=== PATIENT | male | born 2000 | race Caucasian/White ===

== ENCOUNTER 2024-05-22 09:22 | Emergency (ER) | payer OTHER, SELFPAY ==
[2024-05-22 09:25] VITALS: BP 143/98
[2024-05-22 10:00] VITALS: BP 132/75
--- NOTE | 2024-05-22 10:17 | ED.GENMED ---
History of Present Illness
General
Chief Complaint: Dizziness
Source: patient
Exam Limitations: none
Time Seen by Provider: 05/22/24 10:03
History of Present Illness
History of Present Illness:
24-year-old male on Wellbutrin and Lamictal clonidine presents with 2 days worth of feeling dizzy with blurry vision and numbness to both feet. He notes fatigue and myalgias as well. No fever cough or shortness of breath. No chest pain abdominal
pain or vomiting. He states he has been running out of his Lamictal and he has been taking it sparingly but has been taking at least once a day he is on 50 mg twice a day usually. 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 He denies any rash or tick
bites. No other complaints at this time
Phy Exam
Physical Exam
Physical Exam:
General: Well-appearing male no acute respiratory distress
HEENT: Normocephalic atraumatic pupils equal round reactive to light extract motions are intact
Heart: Regular rate and rhythm
Lungs: Clear no wheeze or rales
Abdomen is soft nontender nondistended
Neurologic exam: Alert and oriented normal gait conversing appropriately finger-nose intact no nystagmus
Skin is warm no rash or lesion
Course
Orders/Labs/Results
Orders:
Orders
05/22/24 10:14
CT Head W/o Iv Contrast Urgent
Comment:
Reason For Exam: dizzy
05/22/24 10:19
COVID-19 Antigen Urgent
Source: Nasal Swab
CPK [Creatine Phosphokinase] Urgent
Complete Blood Count/With Diff Urgent
Comprehensive Metabolic Panel Urgent
Lamotrigine (Lamictal) [S] Urgent
Lyme Progressive Urgent
TSH Reflex To Free T4 Urgent
05/22/24 11:46
Orthostatic VS- Treatment ONCE
0.9% Sodium Chloride 1000 ml [Nss] 1,000 ml IV BOLUS
Abnormal Lab Results
05/22/24
10:19
RBC 4.45 L 10^6/uL
(4.70-6.10)
MCH 32.8 H pg
(27.0-31.0)
Abs Immat Gran (auto) 0.1 H 10^3/uL
(0-0.05)
Absolute Monos (auto) 0.7 H 10^3/uL
(0.1-0.6)
Immature Gran % 0.7 H %
(0-0.5)
Carbon Dioxide 33 H mmol/L
(22-30)
AST 87 H U/L
(17-59)
Creatine Kinase 1005 H U/L
(55-170)
05/22/24 10:19
05/22/24 10:19
Vital Signs
Initial and Last Documented VS:
Initial Vital Signs
Temp Pulse Resp BP Pulse Ox
98.6 F 78 18 143/98 98
05/22/24 09:25 05/22/24 09:25 05/22/24 09:25 05/22/24 09:25 05/22/24 09:25
Last Documented Vital Signs
Temp Pulse Resp BP Pulse Ox
98.6 F 78 18 143/98 98
05/22/24 09:25 05/22/24 09:25 05/22/24 09:25 05/22/24 09:25 05/22/24 09:25
MDM/Problems Addressed
Differential Diagnosis Includes:
Generalized sensation of not feeling well but accompanied by blurry vision is dizziness and numbness in feet. Differential could include viral illness versus Lyme versus neurologic disorder versus dehydration or electrolyte abnormality
Patient has not been here before he has minimal health problems that would affect today's care however he has been not taking his Lamictal as he normally would.
Labs pending including thyroid Lyme limit the level. Will do CT of head.
*Critical Care Note
Total Time (30-74mins, 75-104mins- exclusive of procedures): Not Applicable
Update Note
Update Note:
Patient reevaluated multiple times still appears nontoxic. CT head negative COVID-negative. Lyme pending Lamictal level pending. CPK was elevated at 1005. Patient was given a liter fluid here advised that he follow-up in a week for recheck of
his blood. He was also advised that he would get a call if his Lyme test was positive.
Dizziness may be a product of dehydration. Do not suspect CVA.
ED Attending Note
-
Portions of this chart may have been created with voice recognition software.� Occasional wrong word or��sound alike� substitutions may have occurred due to the inherent limitations of voice recognition software.
Discharge Plan
Departure
Patient Disposition: Home (Routine Discharge)
Date of Disposition: 05/22/24
Time of Disposition: 12:25
Patient with high blood pressure during this ER visit?: No
Discharge Problem:
Fatigue
Instructions: Dizziness
Referrals:
Diamante Vickers MD [Family Provider] -
Stand Alone Forms: Return to Work
Activity Restrictions/Additional Instructions:
Stay hydrated. You should receive a call if your Lyme test is positive. Please recheck with your family doctor in 1 week for repeat Vahe blood work including the CPK. Return here for worsening symptoms otherwise
Interventions
Interventions:
*Risk Screen - Suicide Last Done: 05/22/24 09:25
*General Assessment Last Done: 05/22/24 09:25
*Neglect/Abuse Screening Last Done: 05/22/24 09:25
Discharge Date and Time
Print Language: GREENLANDIC
[2024-05-22 10:44] LABS: % Basophils 0.8 % (0-2); % Eosinophils 1.7 % (0-6); % Immature Granulocytes 0.7 % (0-0.5); % Lymphocytes 20.8 % (20.5-51.1); % Monocytes 7.3 % (1.7-9.3); % Neutrophils 68.7 % (42.2-75.2); Absolute Basophils 0.1 10^3/uL (0-0.2); Absolute Eosinophils 0.2 10^3/uL (0-0.7); Absolute Immature Granulocytes 0.1 10^3/uL (0-0.05); Absolute Lymphocytes 1.9 10^3/uL (1.2-3.4); Absolute Monocytes 0.7 10^3/uL (0.1-0.6); Absolute Neutrophils 6.3 10^3/uL (1.4-6.5); Hemoglobin 14.6 g/dL (13.0-18.0); Mean Corp Hgb Conc. 35.6 g/dL (33.0-37.0); Mean Corpuscular Hgb 32.8 pg (27.0-31.0); Mean Corpuscular Volume 92.1 fL (80.0-94.0); Mean Platelet Volume 9.9 fL (7.4-10.4); Nucleated Red Blood Cells % 0 % (-); Platelet Count 274 10^3/uL (130-400); Red Blood Cell Count 4.45 10^6/uL (4.70-6.10); Red Cell Dist. Width 12.5 % (11.5-14.5); White Blood Cell Count 9.1 10^3/uL (4.8-10.8)
[2024-05-22 10:51] LABS: COVID-19 Antigen Negative (Negative)
[2024-05-22 10:53] LABS: ALT (SGPT) 34 U/L (0-50); AST (SGOT) 87 U/L (17-59); Albumin 4.1 g/dl (3.5-5.0); Alkaline Phosphatase 94 U/L (38-126); Blood Urea Nitrogen 14 mg/dl (9-20); Calcium 9.3 mg/dl (8.4-10.2); Carbon Dioxide 33 mmol/L (22-30); Chloride 99 mmol/L (98-107); Creatine Phosphokinase 1005 U/L (55-170); Glucose 89 mg/dl (70-99); Potassium 4.8 mmol/L (3.5-5.1); Sodium 136 mmol/L (135-145); Total Bilirubin 0.4 mg/dl (0.2-1.3); Total Protein 6.6 g/dl (6.3-8.2); eGFR > 60.00
[2024-05-22 11:29] LABS: TSH Reflex To Free T4 3.49 uIU/ml (0.47-4.68)
[2024-05-22 11:46] VITALS: BP 136/89; BP 136/97; BP 136/98; PULSE 78; PULSE 85; PULSE 89
[2024-05-22] MEDS: NSS 1000 IV (12:00)
[2024-05-22 13:15] VITALS: BP 140/79
[2024-05-23 19:57] LABS: Lamotrigine (Lamictal) <0.9 ug/mL (3.0-15.0)
[2024-05-24 14:21] LABS: Lyme Antibody Screen, EIA Negative (Negative)
== END 2024-05-22 13:15 | disposition home or self-care (01) ==
LOC: EMR 09:22
PROVIDERS: Physician Assistant; EMERGENCY PHYSICIAN Emergency Medicine; FAMILY PHYSICIAN Internal Medicine
DX: R42 Dizziness and giddiness (principal)
CPT/HCPCS: 99284; 96360; 70450; 80053; 80175; 82550; 84443; 85025; 86618; 87811

== ENCOUNTER 2024-06-03 08:07 | Emergency (ER) | payer OTHER, SELFPAY ==
[2024-06-03 08:17] VITALS: BP 128/76
--- NOTE | 2024-06-03 09:22 | ED.GENMED ---
History of Present Illness
General
Chief Complaint: Musculo-Skeletal Complaint
Time Seen by Provider: 06/03/24 09:09
History of Present Illness
History of Present Illness:
Days. States he was reaching across his body to bean picker the phone when he felt sudden onset of pain in the right infra axillary chest wall. Denies any direct trauma. Pain is pleuritic and nonradiating. [facility]
where x-rays were obtained and were reportedly unremarkable, he was prescribed cyclobenzaprine and has not had any relief despite taking this coupled with Tylenol and ibuprofen. Presents here with worsening pain. Denies nausea or vomiting
Review of Systems
Review of Systems
Allergies reviewed?: Yes
All Other Systems: ROS reviewed and negative except as documented in HPI and ROS
Phy Exam
Physical Exam
Physical Exam:
GEN: Well appearing, NAD, WDWN
HEENT: Oral mucosa moist, no scleral icterus
Cardiac: Regular rate
Lung: No respiratory distress, no tachypnea, lungs clear to auscultation bilaterally although poor inspiratory effort secondary to pain
Chest: Reproducible tenderness to the right infra axillary chest wall, no palpable deformities or ecchymosis
MSK: No gross deformity or injuries
Skin: Good color, no pallor or jaundice, no rashes
Neuro: AO x3, moves all extremities freely
Psych: Calm, cooperative
Course
Orders/Labs/Results
Orders:
Orders
06/03/24 09:19
Diazepam [Valium] 5 mg PO NOW STA
Ketorolac [Toradol] 30 mg IM NOW STA
Lidocaine [Lidocaine 4% Patch] 1 patch TOPICAL NOW STA
Apply Lidocaine patch(s) to:: R chest wall
06/03/24 10:38
CR Chest - 2 Views Urgent
Comment:
Reason For Exam: non traumatic R chest pain
Vital Signs
Initial and Last Documented VS:
Initial Vital Signs
Temp Pulse Resp BP Pulse Ox
99.0 F 103 16 128/76 98
06/03/24 08:17 06/03/24 08:17 06/03/24 08:17 06/03/24 08:17 06/03/24 08:17
Last Documented Vital Signs
Temp Pulse Resp BP Pulse Ox
99.0 F 103 16 128/76 98
06/03/24 08:17 06/03/24 08:17 06/03/24 09:50 06/03/24 08:17 06/03/24 08:17
MDM/Problems Addressed
MDM/Problems Addressed:
X-ray shows no evidence for pneumothorax. Patient's pain was treated supportively with improvement. Likely chest wall strain. Discussed supportive care and return parameters
*Critical Care Note
Total Time (30-74mins, 75-104mins- exclusive of procedures): Not Applicable
ED Attending Note
-
Portions of this chart may have been created with voice recognition software.� Occasional wrong word or��sound alike� substitutions may have occurred due to the inherent limitations of voice recognition software.
Discharge Plan
Departure
Patient Disposition: Home (Routine Discharge)
Date of Disposition: 06/03/24
Time of Disposition: 11:10
Patient with high blood pressure during this ER visit?: No
Discharge Problem:
Chest wall muscle strain
Instructions: Bruised Rib (DC)
Prescriptions:
New
diazepam 5 mg tablet
5 mg PO TID PRN (Reason: muscle spasm) Qty: 15 0RF
diclofenac sodium 75 mg tablet,delayed release (DR/EC)
75 mg PO BID Qty: 20 0RF
Referrals:
Diamante Vickers MD [Family Provider] -
Stand Alone Forms: Return to Work
Activity Restrictions/Additional Instructions:
Discontinue the cyclobenzaprine
Use the diazepam and diclofenac as prescribed
Take Tylenol but do not take ibuprofen/Motrin/Advil with the prescriptions I provided
Use lidocaine patches [id number] once per day
Interventions
Interventions:
*Risk Screen - Suicide Last Done: 06/03/24 10:58
*General Assessment Last Done: 06/03/24 10:58
*Neglect/Abuse Screening Last Done: 06/03/24 10:58
ED- Fall Risk Assessment Last Done: 06/03/24 11:27
*ED COVID-19 Vaccine History Last Done: 06/03/24 10:58
*Nursing Disposition Last Done: 06/03/24 11:27
ED-Musculoskeletal Assessment Last Done: 06/03/24 09:48
Discharge Date and Time
Discharge Date/Time: 06/03/24 11:28
Print Language: ICELANDIC
[2024-06-03] MEDS: LIDOCAINE 4% PATCH 1 PATCH TOPICAL (09:51)
[2024-06-03] MEDS: TORADOL 30 MG IM (09:51)
[2024-06-03] MEDS: VALIUM 5 MG PO (09:52)
== END 2024-06-03 11:28 | disposition home or self-care (01) ==
LOC: EMR 08:07
PROVIDERS: EMERGENCY PHYSICIAN Emergency Medicine; FAMILY PHYSICIAN Internal Medicine
DX: S29.011A Strain of muscle and tendon of front wall of thorax, initial encounter (principal); J18.9 Pneumonia, unspecified organism; X58.XXXA Exposure to other specified factors, initial encounter
CPT/HCPCS: 99283; 96372; 71046

== ENCOUNTER 2024-06-06 16:19 | Inpatient (IN) | payer OTHER, SELFPAY ==
[2024-06-06] VITALS (7 sets, daily range): BP systolic 115–132; BP diastolic 68–80; BMI 21.1; BMI 26.9
--- NOTE | 2024-06-06 13:13 | ED.GENMED ---
History of Present Illness
General
Chief Complaint: Breathing Problem
Time Seen by Provider: 06/06/24 12:51
History of Present Illness
History of Present Illness:
Patient presents to the emergency department with right-sided chest pain cough and fevers. Symptoms started last with right-sided chest pain. States started after he turned a certain way and felt a pop in his right axillary region. He
was seen at an outpatient urgent care had an x-ray that was negative. He returned to care and was seen in the emergency department and diagnosed with musculoskeletal pain he was given muscle relaxants and pain patches. He then went to another
urgent care due to cough and fever and was found to have pneumonia. He was given 1 dose of IV ceftriaxone yesterday and started on doxycycline and received 2 doses yesterday and 1 dose today. Reports worsening symptoms, fatigue, dark urine and
fevers
Phy Exam
Physical Exam
Physical Exam:
GENERAL APPEARANCE: NAD, well developed/ well nourished, uncomfortable appearing, feels hot
EYES lids/conjunctiva normal
EARS/NOSE/THROAT Mucous membranes moist, uvula midline without oral pharyngeal erythema, exudate or swelling
HEAD/NECK normocephalic atraumatic, neck is supple.
RESPIRATORY respiratory effort normal, speaks in full sentences, no accessory muscle use. Diminished breath sounds at right base
CARDIAC Regular rate and rhythm, no edema.
ABDOMINAL Soft, ND/NT. No pulsatile masses on exam, rebound tenderness, Mcnally sign or pain over Mcburney's point.
MUSCLES/EXTREMITIES No abnormal range of motion, no swelling.
SKIN Hot, pink and dry. No rashes
NEUROLOGICAL Speech is clear and appropriate. Normal level of consciousness. 5/5 strength in all extremities.
PSYCH Normal mood and affect. Judgement/competence is appropriate
Course
Orders/Labs/Results
Orders:
Orders
06/06/24 12:23
Electrocardiogram (*1) Urgent
Reason for Study: Chest Pain
EKG- Treatment ONCE
06/06/24 13:11
Electrocardiogram (*1) Stat
Reason for Study: Other
Other Reason for Exam: pneumonia
0.9% Sodium Chloride 1000 ml [Nss] 1,000 ml IV BOLUS
Acetaminophen [Tylenol] 1,000 mg PO NOW STA
CefTRIAXone [Rocephin] 1,000 mg IV NOW STA
06/06/24 13:12
CR Chest - 2 Views Urgent
Comment:
Reason For Exam: pneumonia
06/06/24 13:13
Urinalysis Reflex To Culture Urgent
06/06/24 13:31
CPK [Creatine Phosphokinase] Urgent
Complete Blood Count/With Diff Urgent
Comprehensive Metabolic Panel Urgent
Direct Bilirubin Urgent
Comment: DIRECT BILIRUBIIN ADDED ON BY FLOOR 3PM 06-06-24
Lactic Acid Q4H
Comment: CANCEL 2nd LACTIC ACID IF 1st LACTIC ACID IS LESS THAN 2
Blood Culture Urgent
ABEL Source: Blood/Venous
Specimen Description:
06/06/24 13:34
Sterile Water [Sterile Water For Injection] 20 ml .ROUTE .STK-MED
06/06/24 14:00
Benzonatate [Tessalon Perles] 200 mg PO ONCE ONE
06/06/24 14:49
CT Chest With Iv Contrast Urgent
Comment:
Reason For Exam: possible pulmonic abscess
MetroNIDAZOLE 500 MG/100 ML [Flagyl 500 mg] 100 ml IV NOW
06/06/24 14:53
0.9% Sodium Chloride 1000 ml [Nss] 1,000 ml IV BOLUS
06/06/24 15:03
Add On- LAB Routine
Tests Added?: direct bilirubin
06/06/24 15:29
Admit/Transfer Patient As Directed
Co-Sign Provider:
Level of Care: Inpatient admission
Assign to:: Medical/Surgical
Physician / Group: [facility]
Diagnosis: Cavitary pneumonia, sepsis
Reason for Hospitalization: IV antibiotics, IVF, pulmonary consult
Expected length of stay greater than two midnights?: Yes
ELOS- Estimated Length of Stay in days: 4
I certify the patient meets the requirements for IP care: Yes
PRN Pain Medication Management As Directed
May give lesser potent ordered pain med per pt: Yes
preference::
Protocol:: Medication orders for pain may be administered in a
manner that supports deferring to patient preference
when the pt is:
- Requesting an ordered lesser potent pain medication.
Least to most potent pain medications are defined
as: acetaminophen < NSAID < tramadol < opioids
(morphine, oxycodone, hydromorphone).
- Requesting a lesser dose of the same medication IF
ORDERED.
- Requesting a less intrusive route of administration
if both routes are prescribed by the provider (PO <
IV).
06/06/24 15:31
Code Status As Directed
Resuscitation Status: Full Code
Abnormal Lab Results
06/06/24
13:31
WBC 19.8 H 10^3/uL
(4.8-10.8)
RBC 4.20 L 10^6/uL
(4.70-6.10)
Hct 37.5 L %
(39.0-52.0)
MCH 31.4 H pg
(27.0-31.0)
Plt Count 403 H 10^3/uL
(130-400)
Abs Immat Gran (auto) 0.2 H 10^3/uL
(0-0.05)
Absolute Neuts (auto) 17.2 H 10^3/uL
(1.4-6.5)
Absolute Monos (auto) 1.2 H 10^3/uL
(0.1-0.6)
Immature Gran % 1.0 H %
(0-0.5)
Neutrophils % 86.9 H %
(42.2-75.2)
Lymphocytes % 5.8 L %
(20.5-51.1)
Sodium 133 L mmol/L
(135-145)
Glucose 106 H mg/dl
(70-99)
Total Bilirubin 2.0 H mg/dl
(0.2-1.3)
Direct Bilirubin 1.5 H mg/dl
(0.0-0.4)
Alkaline Phosphatase 244 H U/L
(38-126)
Creatine Kinase 34 L U/L
(55-170)
Total Protein 6.0 L g/dl
(6.3-8.2)
Albumin 3.1 L g/dl
(3.5-5.0)
06/06/24 13:31
06/06/24 13:31
Vital Signs
Initial and Last Documented VS:
Initial Vital Signs
Temp Pulse Resp BP Pulse Ox
102.9 F H 127 18 125/73 96
06/06/24 12:19 06/06/24 12:19 06/06/24 12:19 06/06/24 12:19 06/06/24 12:19
Last Documented Vital Signs
Temp Pulse Resp BP Pulse Ox
100.4 F H 112 39 123/76 94
06/06/24 14:48 06/06/24 15:00 06/06/24 15:00 06/06/24 15:00 06/06/24 15:00
*Critical Care Note
Total Time (30-74mins, 75-104mins- exclusive of procedures): Not Applicable
ED Attending Note
ED Attending Note
ED Attending Note:
worsening symptoms, night sweats, cough, fevers to 103.
febrile here, tachycardic to 120s. BP is stable.
no respiratory distress or O2 requirements
WBC 19.8, normal lactate
CXR with dense RLL infiltrate with possible pulmonic abscess
Given CTX, doxycycline, metronidazole
ordered CT chest with contrast
will admit for further management
-
Portions of this chart may have been created with voice recognition software.� Occasional wrong word or��sound alike� substitutions may have occurred due to the inherent limitations of voice recognition software.
Discharge Plan
Departure
Patient Disposition: Admit
Date of Disposition: 06/06/24
Time of Disposition: 14:57
Presentation/result/management discussed w/ accepting MD/DO: Hospitalist
Discharge Problem:
Community acquired pneumonia
Prescriptions:
No Action
diclofenac sodium 75 mg tablet,delayed release (DR/EC)
75 mg PO BID Qty: 20 0RF
doxycycline hyclate 100 mg Capsule
100 mg PO BID
clonidine HCl 0.3 mg Tablet
0.3 mg PO HS
acetaminophen [Tylenol Extra Strength] 500 mg Tablet
1,000 mg PO Q6HPRN PRN (Reason: mild pain)
bupropion HCl 100 mg Tablet Sustained-Release 12 Hr
100 mg PO BID
lamotrigine 25 mg Tablet
50 mg PO BID
fluoxetine 20 mg Capsule
80 mg PO DAILY
diazepam 5 mg tablet
5 mg PO TIDPRN PRN (Reason: muscle spasm)
Referrals:
Nicola Wade CRNP [Family Provider] -
Interventions
Interventions:
*Risk Screen - Suicide Last Done: 06/06/24 12:19
*General Assessment Last Done: 06/06/24 12:19
*Neglect/Abuse Screening Last Done: 06/06/24 12:19
ED- Fall Risk Assessment Last Done: 06/06/24 13:45
ED- Cardiac Assessment Last Done: 06/06/24 13:45
ED- Pulmonary Assessment Last Done: 06/06/24 13:45
Discharge Date and Time
Print Language: KHMER
[2024-06-06] MEDS: NSS 1000 IV ×3 (13:36→18:12)
[2024-06-06] MEDS: ROCEPHIN 1000 MG IV (13:37)
[2024-06-06] MEDS: TYLENOL 1000 MG PO (13:37)
[2024-06-06 13:54] LABS: Lactic Acid 1.3 mmol/L (0.7-2.0)
[2024-06-06 13:59] LABS: % Basophils 0.3 % (0-2); % Eosinophils 0.1 % (0-6); % Lymphocytes 5.8 % (20.5-51.1); % Monocytes 5.9 % (1.7-9.3); % Neutrophils 86.9 % (42.2-75.2); Absolute Basophils 0.1 10^3/uL (0-0.2); Absolute Immature Granulocytes 0.2 10^3/uL (0-0.05); Absolute Lymphocytes 1.2 10^3/uL (1.2-3.4); Absolute Monocytes 1.2 10^3/uL (0.1-0.6); Absolute Neutrophils 17.2 10^3/uL (1.4-6.5); Hematocrit 37.5 % (39.0-52.0); Hemoglobin 13.2 g/dL (13.0-18.0); Mean Corp Hgb Conc. 35.2 g/dL (33.0-37.0); Mean Corpuscular Hgb 31.4 pg (27.0-31.0); Mean Corpuscular Volume 89.3 fL (80.0-94.0); Mean Platelet Volume 9.9 fL (7.4-10.4); Nucleated Red Blood Cells % 0 % (-); Platelet Count 403 10^3/uL (130-400); White Blood Cell Count 19.8 10^3/uL (4.8-10.8)
[2024-06-06 14:07] LABS: ALT (SGPT) 49 U/L (0-50); AST (SGOT) 45 U/L (17-59); Albumin 3.1 g/dl (3.5-5.0); Alkaline Phosphatase 244 U/L (38-126); Blood Urea Nitrogen 15 mg/dl (9-20); Carbon Dioxide 25 mmol/L (22-30); Chloride 100 mmol/L (98-107); Creatine Phosphokinase 34 U/L (55-170); Estimated Creatinine Clearance 124 ml/min; Glucose 106 mg/dl (70-99); Potassium 4.1 mmol/L (3.5-5.1); Sodium 133 mmol/L (135-145); eGFR > 60.00
[2024-06-06] MEDS: TESSALON PERLES 200 MG PO (14:43)
[2024-06-06] MEDS: FLAGYL 500 MG 100 IV (15:24)
--- NOTE | 2024-06-06 15:37 | HPS.HSE ---
Family Physician
-
Family Physician: ERIC Murphy
Chief Complaint
-
Fever, chills, cough
History of Present Illness
24-year-old male here complaining of right-sided pleuritic chest pain with associated cough, fever, chills.
Originally developed pain on May 31 of the right lateral chest wall. Denies any trauma. Went to urgent care on June 02 and prescribed muscle relaxants. Reportedly chest x-ray at the time was unremarkable. Subsequently came into the emergency
room on Tuesday, June 03 and discharged on diazepam and diclofenac.
Had ongoing symptoms of cough fever chills and anorexia and dark urine over the past few days. Went back to urgent care yesterday and started on antibiotics (ceftriaxone, doxycycline) for pneumonia.
Went to see his primary care doctor today and was referred to the emergency room.
Denies history of pneumonia.
Admits to drinking 3-4 alcoholic beverages daily, states he has not had any in the past 2 weeks. He does vape and does medical marijuana nightly.
Denies any sick contacts.
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
Medical History
Past Medical History
Past Medical History: Reports Other
Additional Past Medical History:
Depression
Anxiety disorder
Past Surgical History: Reports Other
Additional Past Surgical History:
Adenoidectomy
Bilateral myringotomy tubes
Social History
Tobacco: Smoker
Alcohol: Daily
Drug: Marijuana
Personal: Single
Family History
Family History: Not pertinent
Allergies / Home Medications
Allergies reflects when Allergies were last updated in [facility].
Home Medications with original date entered in [facility]
Allergy/Medication List:
Allergies
Allergy/AdvReac Type Severity Reaction Status Date / Time
No Known Allergies Allergy Verified 06/03/24 08:19
Home Medications
diclofenac sodium 75 mg tablet,delayed release 75 mg PO BID #20 tabs 06/03/24
acetaminophen 500 mg tablet (Tylenol Extra Strength) 1,000 mg PO Q6HPRN PRN mild pain 06/06/24
bupropion HCl 100 mg tablet,12 hr sustained-release 100 mg PO BID 06/06/24
clonidine HCl 0.3 mg tablet 0.3 mg PO HS 06/06/24
diazepam 5 mg tablet 5 mg PO TIDPRN PRN muscle spasm 06/06/24
doxycycline hyclate 100 mg capsule 100 mg PO BID 06/06/24
fluoxetine 20 mg capsule 80 mg PO DAILY 06/06/24
lamotrigine 25 mg tablet 50 mg PO BID 06/06/24
Review of Systems
-
History Source: Patient and Family
A 12 point ROS was completed and negative except as noted: Yes
Constitutional: Reports Fever and Chills
Respiratory: Reports Cough
Cardiac: Reports Chest Pain
Physical Exam
Vital Signs
Vital Signs
Temp Pulse Resp BP Pulse Ox
100.4 F H 112 39 123/76 94
06/06/24 14:48 06/06/24 15:00 06/06/24 15:00 06/06/24 15:00 06/06/24 15:00
Physical Exam
General: Well Developed, Well Nourished, Appears in Distress and Pain
HEENT: NormoCephalic, Anicteric and Moist mucous membranes
Respiratory: Decreased Breath Sounds
Cardiac: S1/S2, Regular Rhythm and Tachycardia
GI: Soft, Non Tender and Non Distended
Genito-urinary: Deferred by me
Musculoskeletal: No Clubbing, No Cyanosis and No Edema
Skin: Warm and Dry
Neuro: AO x 3
Hematologic/Lymphatic: No Lymphadenopathy
Psych: Calm
Laboratory Results
-
06/06/24 13:31
06/06/24 13:31
Laboratory Results
Lactic Acid Cancelled 06/06/24 17:15
Total Bilirubin 2.0 mg/dl (0.2-1.3) H 06/06/24 13:31
AST 45 U/L (17-59) 06/06/24 13:31
ALT 49 U/L (0-50) 06/06/24 13:31
Alkaline Phosphatase 244 U/L (38-126) H 06/06/24 13:31
Impression/Plan
-
Sepsis due to right-sided cavitary pneumonia - admit to [facility]. Hemodynamically stable. IV Unasyn. Check blood and sputum cultures. Check urinary antigens. Acapella, incentive spirometry. Today's chest x-ray is concerning, showing worsening
of right lower lobe pneumonia with new area of central cavitation and lucency measuring 5.8 x 2.6 cm with possible air-fluid level suspicious for abscess.
Follow-up CT chest.
Consult pulmonary.
IV Toradol as needed pain.
Fourth-generation HIV assay, patient agreeable to testing.
Risk factors for pneumonia including vaping, alcohol use, possibly other unknown sources.
Hypovolemic hyponatremia -continue normal saline IV fluids. Sepsis and pneumonia induced anorexia causing hypovolemia.
Alcohol use disorder -abstinence strongly encouraged given presentation with pneumonia. Watch for withdrawal symptoms, although unlikely if he truly has been abstinent for 2 weeks.
Tobacco dependence -cessation advised.
Depression/anxiety disorder -resume home medications.
Full code
Mother updated at the bedside.
[2024-06-06 15:39] LABS: Direct Bilirubin 1.5 mg/dl (0.0-0.4)
[2024-06-06] MEDS: TORADOL 30 MG IV ×2 (15:55→21:59)
[2024-06-06 16:50] LABS: Urine Albumin Trace (Neg - Trace); Urine Bilirubin 1+ (Negative); Urine Character Clear (Clear); Urine Color Amber; Urine Glucose Negative (Negative); Urine Ketone Negative (Negative); Urine Leukocyte Negative (Negative); Urine Nitrite Negative (Negative); Urine Occult Blood Negative (Negative); Urine Urobilinogen 4+ (Neg - 1+)
--- NOTE | 2024-06-06 17:36 | PTCARENOTE ---
1725 Pt received from ED via stretcher AAOX4. Pt ambulated from stretcher to bed with steady gait. Pt accompanied by family and ED staff.
--- NOTE | 2024-06-06 17:40 | CON.PUL ---
Consultation
Consultation Request
Date/Time Consultation Requested: 06/06
Date/Time Consultation Performed: 06/06
Reason for Consultation: Cavitary pneumonia
Medical History
-
History of Present Illness:
History obtained from the patient and reviewing the chart. 24-year-old male whose history dates back to 05/31 when he developed right-sided chest discomfort after leaning over, he felt a pop. He went to urgent care on 06/02, was treated with muscle
relaxants. Because of persistent symptoms, he came to the ED 06/03, had chest x-ray and was told everything was okay. He was then called by the urgent care stating that his chest x-ray did show pneumonia, was asked to return to patient first. He
was given IV ceftriaxone and discharged on doxycycline. He then went to see his primary physician 06/06, found to be tachycardic and was told to go to the ED for further evaluation. Upon arrival to [facility], temperature 102.9, pulse 127,
breathing at 18, blood pressure 125/73, 96%. Chest x-ray showed progressive right lower lobe pneumonia. Patient was given ceftriaxone, doxycycline, metronidazole. CT chest obtained. Patient admitted for cavitary pneumonia. We are asked to
comment on pulmonary process.
Prior to 05/31, patient was in usual state of health. Denies any travel, sick contacts, nausea, abdominal pain, diarrhea. Admits to fevers and night sweats over the past few days. He is lost 5 pounds over the past 5 days.
He does get lightheaded and short of breath when has cough spasms. Denies hemoptysis. Can cough up about a cup of yellow mucus. This has been present for the past 5 days. Mother was present to corroborate
Patient does drink 4 [place] Light's a day which is his routine
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
Patient denies any sinus issues, dental issues, skin infections
.
PMH: History of anxiety, depression, opioid addiction per outpatient records. History of tonsillectomy, chronic ear infections requiring tubes as a child
Past Medical History
Past Medical History: None (See above)
Past Surgical History: None (See above)
Social History
Tobacco: Smoker (Intermittently between cigarettes and vaping)
Alcohol: Daily (4 [place] Light's a day. Admits to being buzzed every night)
Drug: None
Personal: Single
Living: With Family
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
Family History
Family History: Other (Younger brother with history of pneumonia, mother with history of pneumonia)
Allergies / Home Medications
Allergies
Allergy/AdvReac Type Severity Reaction Status Date / Time
No Known Allergies Allergy Verified 06/03/24 08:19
Home Medications
�Medication �Instructions �Recorded �Confirmed �Last Taken �Type
diclofenac sodium 75 mg 75 mg PO BID #20 tabs 06/03/24 06/06/24 06/05/24 Rx
tablet,delayed release
acetaminophen 500 mg tablet 1,000 mg PO Q6HPRN PRN mild pain 06/06/24 06/06/24 Unknown History
(Tylenol Extra Strength)
bupropion HCl 100 mg tablet,12 hr 100 mg PO BID 06/06/24 06/06/24 06/05/24 History
sustained-release
clonidine HCl 0.3 mg tablet 0.3 mg PO HS 06/06/24 06/06/24 06/05/24 History
diazepam 5 mg tablet 5 mg PO TIDPRN PRN muscle spasm 06/06/24 06/06/24 06/06/24 History
doxycycline hyclate 100 mg capsule 100 mg PO BID 06/06/24 06/06/24 06/06/24 History
fluoxetine 20 mg capsule 80 mg PO DAILY 06/06/24 06/06/24 06/05/24 History
lamotrigine 25 mg tablet 50 mg PO BID 06/06/24 06/06/24 06/05/24 History
Review of Systems
-
All other systems: Negative unless noted
Vitals / Labs / Diagnostic Testing
Vital Signs
Temp Pulse Resp BP Pulse Ox
98.5 F 95 18 130/77 98
06/06/24 17:39 06/06/24 17:39 06/06/24 17:39 06/06/24 17:39 06/06/24 17:39
Lab Data
06/06/24 13:31
06/06/24 13:31
Diagnostic Testing:
Physical Exam
-
HEENT: Normocephalic and Anicteric
Cardiovascular: S1/S2, Regular Rhythm, Murmur (n), Rub (n) and Peripheral Edema (n)
Respiratory: Wheeze (n), Rales (n), Rhonchi (n), Non-Labored Respirations and Other (Mild splinting, decreased breath sounds right side)
GI: Soft, Non Distended and Non Tender
Neurology: Awake, Alert and No Motor Deficits
Skin: Good Color and Other (Tattoo)
General: Comfortable
Assessment
-
24-year-old male with daily alcohol use, ongoing cigarette/vape presents with acute onset right-sided chest discomfort 05/31. Symptoms persisted along with productive cough, fevers, sweats, started on ceftriaxone/doxycycline 06/05, prompted to the ED
per primary because of tachycardia and progressive symptoms. Chest x-ray shows right lower lobe cavitary pneumonia
Cavitary right lower lobe pneumonia
Patchy right middle lobe infiltrate
Right hilar and mediastinal adenopathy
Acute right-sided chest discomfort, symptoms 05/31
Fevers/night sweats
Leukocytosis
Conditions present prior to admission
Daily alcohol use
Four [place] Lights/day
Ongoing tobacco/vaping
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
Plan/recommendations
At this time, the patient appears to be nontoxic, no evidence of tachycardia, no use of accessory muscles
Chest exam with decreased breath sounds, right base with mild splinting
Chest x-ray with progressive right lower lobe process over the last [address] chest confirms cavitary pneumonia
Difficult to differentiate as to whether there may be extra pleural fluid, empyema
Moving forward
Continue with broad-spectrum antibiotics. Unasyn is appropriate therapy at this time, appropriately dosed
Patient with daily alcohol use. Reviewed with patient that this may increase his risk for cavitary pneumonia
It is difficult to differentiate as to whether there may be fluid in the pleural space, which would require a thoracentesis/chest tube
Will review images at length with radiology in a.m.
Sputum culture
IV fluids
Discussed importance of tobacco and alcohol cessation
Differential also includes noninfectious process such as vasculitis, sequestration, septic emboli
EKG is normal , no other clinical sequela to suggest vasculitis. Patient was full-term baby, denies history of frequent pneumonias
Urine analysis negative for microscopic blood
Follow for response to antibiotic therapy
Bronchoscopy may be indicated but hopefully with IV antibiotics, patient will improve both objectively and subjectively, radiographically
DVT prophylaxis: Agree with Lovenox therapy
GI prophylaxis: Not indicated
Reviewed with patient and mother at bedside
All questions answered
[2024-06-06] MEDS: LOVENOX 40 MG SC (18:25)
[2024-06-06] MEDS: UNASYN IV (19:49)
[2024-06-06] MEDS: LAMICTAL 50 MG PO (19:49)
[2024-06-06] MEDS: WELLBUTRIN SR (12 hour sustained release) 100 MG PO (19:50)
[2024-06-06] MEDS: CATAPRES 0.3 MG PO (21:53)
[2024-06-07] VITALS (9 sets, daily range): BP systolic 94–137; BP diastolic 58–84
[2024-06-07] MEDS: UNASYN IV ×4 (01:32→20:31)
[2024-06-07] MEDS: TESSALON PERLES 100 MG PO ×3 (03:19→14:17)
[2024-06-07] MEDS: NSS 1000 IV (05:38)
[2024-06-07 07:11] LABS: % Basophils 0.3 % (0-2); % Eosinophils 0.5 % (0-6); % Immature Granulocytes 1.2 % (0-0.5); % Lymphocytes 9.5 % (20.5-51.1); % Neutrophils 81.5 % (42.2-75.2); Absolute Basophils 0.1 10^3/uL (0-0.2); Absolute Eosinophils 0.1 10^3/uL (0-0.7); Absolute Immature Granulocytes 0.2 10^3/uL (0-0.05); Absolute Lymphocytes 1.7 10^3/uL (1.2-3.4); Absolute Monocytes 1.2 10^3/uL (0.1-0.6); Absolute Neutrophils 14.4 10^3/uL (1.4-6.5); Hematocrit 36.7 % (39.0-52.0); Mean Corp Hgb Conc. 35.4 g/dL (33.0-37.0); Mean Corpuscular Hgb 32.2 pg (27.0-31.0); Mean Corpuscular Volume 90.8 fL (80.0-94.0); Nucleated Red Blood Cells % 0 % (-); Platelet Count 414 10^3/uL (130-400); Red Blood Cell Count 4.04 10^6/uL (4.70-6.10); Red Cell Dist. Width 12.9 % (11.5-14.5); White Blood Cell Count 17.6 10^3/uL (4.8-10.8)
[2024-06-07] MEDS: WELLBUTRIN SR (12 hour sustained release) 100 MG PO ×2 (07:52→20:32)
[2024-06-07] MEDS: LAMICTAL 50 MG PO ×2 (07:52→20:31)
[2024-06-07] MEDS: PROZAC 80 MG PO (07:53)
[2024-06-07] MEDS: TYLENOL 650 MG PO (07:54)
[2024-06-07 07:57] LABS: ALT (SGPT) 37 U/L (0-50); AST (SGOT) 33 U/L (17-59); Albumin 2.6 g/dl (3.5-5.0); Alkaline Phosphatase 237 U/L (38-126); Blood Urea Nitrogen 14 mg/dl (9-20); Calcium 8.5 mg/dl (8.4-10.2); Carbon Dioxide 19 mmol/L (22-30); Chloride 105 mmol/L (98-107); Estimated Creatinine Clearance > 125 ml/min; Glucose 91 mg/dl (70-99); Potassium 4.4 mmol/L (3.5-5.1); Sodium 134 mmol/L (135-145); Total Bilirubin 1.6 mg/dl (0.2-1.3); Total Protein 5.3 g/dl (6.3-8.2); eGFR > 60.00
--- NOTE | 2024-06-07 08:49 | W.PN.PUL3 ---
Today's Communication / Plan
-
Continue antibiotics
ID evaluation requested
Likely chest tube later today
Follow cultures
Assessment
-
24-year-old male with daily alcohol use, ongoing cigarette/vape presents with acute onset right-sided chest discomfort 05/31. Symptoms persisted along with productive cough, fevers, sweats, started on ceftriaxone/doxycycline 06/05, prompted to the ED
per primary because of tachycardia and progressive symptoms. Chest x-ray shows right lower lobe cavitary pneumonia
Cavitary right lower lobe pneumonia
Patchy right middle lobe infiltrate
Right hilar and mediastinal adenopathy
Suspected pleural fluid
Acute right-sided chest discomfort, symptoms 05/31
Fevers/night sweats
Leukocytosis
Conditions present prior to admission
Daily alcohol use
Four [place] Lights/day
Ongoing tobacco/vaping
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
Plan/recommendations
At this time, the patient appears stable, nontoxic. Mild tachycardia noted
Chest exam with decreased breath sounds, right base with mild splinting
Chest x-ray with progressive right lower lobe process over the last [address] chest confirms cavitary pneumonia
Difficult to differentiate as to whether there may be extra pleural fluid, empyema
Suspect there may be pleural fluid
Moving forward
Continue with broad-spectrum antibiotics. Unasyn is appropriate therapy at this time, appropriately dosed
Patient with daily alcohol use. Reviewed with patient that this may increase his risk for cavitary pneumonia
We will plan for diagnostic and possible chest tube placement later today. Lillian as needed will discuss with IR
ID has been consulted
Sputum culture
Legionella and streptococcal antigen negative
IV fluids
Discussed importance of tobacco and alcohol cessation
Differential also includes noninfectious process such as vasculitis, sequestration, septic emboli
EKG is normal , no other clinical sequela to suggest vasculitis. Patient was full-term baby, denies history of frequent pneumonias
Urine analysis negative for microscopic blood
Follow for response to antibiotic therapy
Bronchoscopy may be indicated but hopefully with IV antibiotics, patient will improve both objectively and subjectively, radiographically
DVT prophylaxis: Agree with Lovenox therapy
GI prophylaxis: Not indicated
Reviewed with patient and mother at bedside
Reviewed with interventional radiology, primary service
Subjective Data
-
Date of Service:
Date of Service: June 07, 2024
Subjective:
Patient is feeling slightly improved this morning but still with significant productive cough, yellow mucus, no blood. Enough to fill up. Just this morning. Still with mild right-sided back discomfort. Fevers noted. Denies nausea, abdominal
pain. Mother at bedside
Objective Data
Data Reviewed
Vital Signs / I&O / Oxygen:
Vital Signs
Temp Pulse Resp BP Pulse Ox
101.7 F H 103 16 137/83 94
06/07/24 07:49 06/07/24 07:49 06/07/24 07:49 06/07/24 07:49 06/07/24 07:49
Intake and Output
06/06/24 06/07/24 06/08/24
06:59 06:59 06:59
Intake Total 1919
Balance 1919
SaO2 94
Physical Exam
General: Comfortable
HEENT: Normocephalic and Anicteric
Cardiovascular: S1-S2, Regular Rhythm (Tachycardic), Murmur (n), Peripheral Edema (n) and Calf Tenderness (n)
Respiratory: Wheeze (n), Crackles (n), Rhonchi (n), Non-Labored Respirations and Other (Decreased breath sounds right base, dullness to percussion)
GI: Soft, Non Distended and Non Tender
Neurology: Awake, Alert and No Motor Deficits (Able to sit up without assistance)
Skin: Cyanosis (n), Jaundice (n), Rash (n) and Other (Tattoo)
Labs/Micro/Reports
Lab Data
06/07/24 06:46
06/07/24 06:46
Microbiology
06/06/24 16:36 Urine Legionella Urinary Antigen - Final
Negative for Legionella pneumophila Serogroup 1 antigen.
A negative result does not rule out the possiblity of
Legionella infection due to other serogroups or species of
Legionella. Clinical correlation is recommended.
06/06/24 16:36 Urine Streptococcus pneumoniae Antigen (M - Final
Negative for Streptococcus pneumoniae antigen.
A negative result does not exclude infection with
Streptococcus pneumoniae. Clinical correlation is
recommended.
[2024-06-07] MEDS: TORADOL 30 MG IV ×3 (08:58→22:04)
--- NOTE | 2024-06-07 10:26 | W.PN.HOSP.TC ---
Today's Communication/Plan
-
Antibiotics
IR consult
ID consult
Assessment / Plan
Assessment / Plan
Gen-AAOx3, NAD
HEENT-NC, AT, anicteric, clear oral mm
Neck-supple
CV-reg, no M, +S1/S2
Lungs-clear B/L
Abd-soft, NT, ND
Ext-no edema
Musculoskeletal-no cyanosis, clubbing
Skin-warm and dry
Neuro-grossly non-focal
Psych-calm, cooperative
Sepsis due to right-sided cavitary pneumonia/empyema -CT chest reviewed. Discussed with pulmonary. IR consult for possible chest tube placement. Continue IV Unasyn. Consult ID. Cultures pending.
HIV pending. IV Toradol as needed chest pain.
Hyponatremia -hypovolemic. Continue IV fluids.
Alcohol use disorder -abstinence strongly encouraged given presentation with pneumonia. Watch for withdrawal symptoms, although unlikely if he truly has been abstinent for 2 weeks.
Tobacco dependence -cessation advised.
Depression/anxiety disorder -continue home meds.
Full code
Anticipated Discharge: > 48 hours
Subjective/Interval History
-
Date of Service: June 07, 2024
Patient seen and examined. Still complaining of cough, right-sided pleuritic chest pain.
Objective Data
-
Labs:
Laboratory Results
06/07/24
06:46
WBC 17.6 H
Hgb 13.0
Hct 36.7 L
Plt Count 414 H
Sodium 134 L
Potassium 4.4
Chloride 105
Carbon Dioxide 19 L
BUN 14
Creatinine 0.8
Glucose 91
Calcium 8.5
Total Bilirubin 1.6 H
AST 33
ALT 37
Alkaline Phosphatase 237 H
Vital Signs:
Vital Signs
Temp Pulse Resp BP Pulse Ox
101.7 F H 103 16 137/83 94
06/07/24 07:49 06/07/24 07:49 06/07/24 07:49 06/07/24 07:49 06/07/24 07:49
I&O
06/06/24 06/07/24 06/08/24
06:59 06:59 06:59
Intake Total 1919
Balance 1919
Review of Systems
-
History Source: Patient
All other systems: Reviewed and negative
--- NOTE | 2024-06-07 13:44 | CON.ID ---
Consultation
-
Date/Time Consultation Requested: 06/06/2024 1734
Date/Time Consultation Performed: 06/07/2024 1320
Requesting Provider: Dr. Pettit
Performing Provider: Dr. Merrill
Reason for Consultation: Right lower lobe pneumonia
Chief Complaint / Past History
History of Present Illness
Eloy Lopez is a 24-year-old man being evaluated at the request of Dr. Pettit in regards to right lower lobe pneumonia. History is obtained from chart review, along with patient interview.
Patient has a significant past medical history for anxiety and depression and reports he initially felt ill around June 01 when he noted some right thoracic chest pain. On 06/02 he was seen at an urgent care for the thoracic chest pain and x-ray
imaging did not report any findings of pneumonia. He was sent on his way with a muscle relaxant, but presented to the ER on 06/03 secondary to the ongoing chest pain. At this point he noted that the chest discomfort was pleuritic in nature. The
patient reports no history of trauma to the area. Nothing was seen on x-ray imaging, and he was discharged to home. Following day he received a call from the urgent care where he was seen and official reports of the x-ray suggested pneumonia. He
was called back for a shot of Rocephin and was placed on doxycycline. He presents back to the ER on 06/06 secondary to increasing pain, and now imaging revealed the presence of a right lower lobe infiltrate. Further workup revealed a marked
leukocytosis, and a CAT scan that was performed revealed a very significant right lower lobe pneumonia with central cavitation and an air-fluid level. The patient has been started on empiric antibiotics; the first Rocephin/metronidazole, and now
has been switched to Unasyn. Infectious Diseases is asked to comment on further antimicrobial management. The patient is tentatively scheduled for aspiration of the air-fluid level via interventional radiology. Cultures are currently pending. At
this point in time the patient reports significant sputum production and coughing fits. He admits to prior fevers. He denies any abdominal pain.
He denies any episodes of aspiration. He denies any sick contacts.
Past History
Additional Past Medical History:
Anxiety/depression
Additional Past Surgical History:
Tonsil adenoids
Ear tubes
Allergy History:
No Known Allergies Allergy (Verified 06/03/24 08:19)
Medications Reviewed: Yes
Current Antibiotics:
Unasyn
Social History
Tobacco: Vaping
Alcohol: Daily (4-5 beers/day)
Drug: Marijuana (medical)
Personal: Single
Living: With Family
Employment: Employed ([employer])
Family History
Family History: Not Pertinent
Review of Systems
Vital Signs
Temp Pulse Resp BP Pulse Ox
101.7 F H 103 16 137/83 94
06/07/24 07:49 06/07/24 07:49 06/07/24 07:49 06/07/24 07:49 06/07/24 07:49
Physical Exam
Physical Exam
Constitutional: Well Developed, Comfortable, Acutely Ill and Non-toxic
Head: Normocephalic
Eyes: Pupils Equal, Pupils Round, No Conjunctival Hemorrhage and Sclera Anicteric
Oral: No Thrush and No Ulcers
Cardiovascular: Regular Rate and S1/S2; Negative S3/S4 or Murmur
Pulmonary: Coarse and Non Labored; Negative Wheezes
Gastrointestinal: Soft, Non Tender, Non Distended, Normal Bowel Sounds, No Rebound and No Guarding
Genito-Urinary: Negative Hines
Extremities: Negative Edema, Cyanosis or Erythema
Skin: Warm; Negative Rash or Jaundice
Neurological: Awake, Alert and Oriented
Psychological: Calm
Lab / Diagnostic Study Results
06/07/24 06:46
06/07/24 06:46
Abs Immat Gran (auto) 0.2 10^3/uL (0-0.05) H 06/07/24 06:46
Absolute Neuts (auto) 14.4 10^3/uL (1.4-6.5) H 06/07/24 06:46
Absolute Lymphs (auto) 1.7 10^3/uL (1.2-3.4) 06/07/24 06:46
Absolute Monos (auto) 1.2 10^3/uL (0.1-0.6) H 06/07/24 06:46
Absolute Basos (auto) 0.1 10^3/uL (0-0.2) 06/07/24 06:46
Immature Gran % 1.2 % (0-0.5) H 06/07/24 06:46
Neutrophils % 81.5 % (42.2-75.2) H 06/07/24 06:46
Lymphocytes % 9.5 % (20.5-51.1) L 06/07/24 06:46
Monocytes % 7.0 % (1.7-9.3) 06/07/24 06:46
Eosinophils % 0.5 % (0-6) 06/07/24 06:46
Basophils % 0.3 % (0-2) 06/07/24 06:46
Lactic Acid Cancelled 06/06/24 17:15
Microbiology Results
Micro:
06/06/24 13:31 Blood Culture - Preliminary
Blood/Venous No Growth in 24 hours- Final report to follow
06/06/24 22:02 Respiratory Culture - Pending
Sputum Gram Stain - Preliminary
06/06/24 16:36 Legionella Urinary Antigen - Final
Urine Negative for Legionella pneumophila Serogroup 1 antigen.
A negative result does not rule out the possiblity of
Legionella infection due to other serogroups or species of
Legionella. Clinical correlation is recommended.
Streptococcus pneumoniae Antigen (M - Final
Negative for Streptococcus pneumoniae antigen.
A negative result does not exclude infection with
Streptococcus pneumoniae. Clinical correlation is
recommended.
Imaging:
06/06/2024 CT chest with IV contrast: A large abnormal fluid collection with air bubbles and air-fluid level in the right lower hemithorax. Empyema with accompanying parenchymal abscess cannot be entirely excluded. There are small patchy opacities
in the right middle lobe at least in part representing subsegmental atelectasis, but cannot exclude pneumonitis. There is also suspected right hilar and mid mediastinal lymphadenopathy. Please see full dictation for additional detail. Film
personally viewed.
06/06/2024 CXR (2 view): Worsening airspace disease within the right lower lobe with new central lucency and possible air-fluid level suspicious for possible pulmonic abscess. Left lung is clear. Please see full dictation for additional detail.
Assessment / Plan
Right lower lobe pneumonia with suspected pulmonic abscess
- possibly from aspiration event
Leukocytosis
Fever
Recommendations:
Continue with Unasyn.
Patient tentatively for IR aspiration of air-fluid level.
Sputum cultures pending.
Further antibiotic recommendations as additional data is returned.
Monitor white count and temperature curve.
Care Review
Plan reviewed with: Physician (Hospitalist)
--- NOTE | 2024-06-07 15:00 | CM ---
Reviewed chart, met with patient to obtain information for assessment. His parents were at bedside. Patient stated that he lives with his mother and father in a split level home with 5 steps to enter. He described himself as independent with his
ADLs, personal care, dressing and bathing. 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 He can drive and can get to his appointments and do his own shopping.
Patient denied any DME. He has no o2, inhalers or nebulizers.
He has never had VN services.
Patient has never been to a SNF.
Patient has a prescription plan and uses, [facility] in [place] for all of his medications.
Patiet's PCP is, Nicola Wade.
Patient stated that he does not anticipate any needs upon discharge and would like to return home with his parents.
Plan: Case management will continue to follow and assist with discharge planning. Home when stable.
--- NOTE | 2024-06-07 16:36 | W.PN.UPDATE ---
Update Note
Progress Note Update
- 14F R chest tube placed without difficulty
- Purulent/foul smelling opaque yellow fluid aspirated.
- Discussed with pulmonary - will proceed with pleural lysis this evening.
--- NOTE | 2024-06-07 17:23 | PN.IRAD.UPD ---
Update Note - IRAD
- -
5 mg TPA in a total volume of 50ml 0.9% NaCl , 5 mg DORNASE in a total volume of 50 ml 0.9% Na Cl instilled via right chest tube at bedside. chest tube clamped at 1715. Patient tolerated procedure well. RN notified.
--- NOTE | 2024-06-07 17:29 | PTCARENOTE ---
Pt arrived from IRAD with right sided posterior chest tube . PT transferred from the stretcher to the bed with assist x1 . Will continue to monitor
[2024-06-07 17:37] LABS: Body Fluid pH < 6.80
[2024-06-07] MEDS: LOVENOX 40 MG SC (17:37)
[2024-06-07 17:50] LABS: Body Fluid Glucose < 30 mg/dl; Body Fluid Protein 4.2 g/dl
[2024-06-07 18:01] LABS: Body Fluid Mononuclear 58.3 %; Body Fluid Polymorphonuclear 41.7 %; Body Fluid WBC 22500 /CUMM
[2024-06-07 18:04] LABS: HIV Combo Negative (Negative)
[2024-06-07 18:07] LABS: Body Fluid Second Tech LD
[2024-06-07 18:27] LABS: Body Fluid LDH 3582 U/L
[2024-06-07] MEDS: CATAPRES 0.3 MG PO (22:03)
[2024-06-08] MEDS: UNASYN IV ×4 (03:06→20:14)
[2024-06-08] MEDS: VALIUM 5 MG PO (03:12)
[2024-06-08] MEDS: TORADOL 30 MG IV ×2 (05:57→15:26)
[2024-06-08 07:35] LABS: % Basophils 0.5 % (0-2); % Eosinophils 1.8 % (0-6); % Immature Granulocytes 2.1 % (0-0.5); % Lymphocytes 12.1 % (20.5-51.1); % Monocytes 7.8 % (1.7-9.3); % Neutrophils 75.7 % (42.2-75.2); Absolute Basophils 0.1 10^3/uL (0-0.2); Absolute Eosinophils 0.2 10^3/uL (0-0.7); Absolute Immature Granulocytes 0.3 10^3/uL (0-0.05); Absolute Lymphocytes 1.5 10^3/uL (1.2-3.4); Absolute Neutrophils 9.4 10^3/uL (1.4-6.5); Hematocrit 33.8 % (39.0-52.0); Hemoglobin 11.6 g/dL (13.0-18.0); Mean Corp Hgb Conc. 34.3 g/dL (33.0-37.0); Mean Corpuscular Hgb 31.1 pg (27.0-31.0); Mean Corpuscular Volume 90.6 fL (80.0-94.0); Mean Platelet Volume 9.7 fL (7.4-10.4); Nucleated Red Blood Cells % 0 % (-); Platelet Count 381 10^3/uL (130-400); Red Blood Cell Count 3.73 10^6/uL (4.70-6.10); Red Cell Dist. Width 12.8 % (11.5-14.5); White Blood Cell Count 12.4 10^3/uL (4.8-10.8)
[2024-06-08 07:54] VITALS: BP 123/78
[2024-06-08] MEDS: PROZAC 80 MG PO (07:59)
[2024-06-08] MEDS: LAMICTAL 50 MG PO ×2 (07:59→20:14)
[2024-06-08] MEDS: WELLBUTRIN SR (12 hour sustained release) 100 MG PO ×2 (08:01→20:14)
[2024-06-08 08:07] LABS: ALT (SGPT) 28 U/L (0-50); AST (SGOT) 22 U/L (17-59); Albumin 2.4 g/dl (3.5-5.0); Alkaline Phosphatase 199 U/L (38-126); Blood Urea Nitrogen 12 mg/dl (9-20); Calcium 8.6 mg/dl (8.4-10.2); Carbon Dioxide 25 mmol/L (22-30); Chloride 105 mmol/L (98-107); Estimated Creatinine Clearance > 125 ml/min; Glucose 95 mg/dl (70-99); Potassium 4.1 mmol/L (3.5-5.1); Sodium 134 mmol/L (135-145); Total Bilirubin 0.9 mg/dl (0.2-1.3); eGFR > 60.00
--- NOTE | 2024-06-08 09:48 | PN.IRAD.UPD ---
Update Note - IRAD
- -
8MG TPA in a total volume of 50 ml 0.9 % Na Cl, 5 MG DORNASE in a total volume of 50 ml 0.9% NaCl , 25 ML 0.9% NaCl in luer lock syringe instilled via right chest tube at bedside. Chest tube clamped at 0915. RN notified. Patient tolerated procedure
well.
--- NOTE | 2024-06-08 09:58 | W.PN.HOSP.TC ---
Today's Communication/Plan
-
Continue current care
Assessment / Plan
Assessment / Plan
Gen-AAOx3, NAD
HEENT-NC, AT, anicteric, clear oral mm
Neck-supple
CV-reg, no M, +S1/S2
Lungs-clear B/L
Abd-soft, NT, ND
Ext-no edema
Musculoskeletal-no cyanosis, clubbing
Skin-warm and dry
Neuro-grossly non-focal
Psych-calm, cooperative
Sepsis due to right-sided cavitary pneumonia/empyema - CT chest reviewed. Discussed with pulmonary. IR placed chest tube on June 07, also getting thrombolysis through tube. Continue IV Unasyn. Consult ID. Cultures pending.
HIV negative. IV Toradol as needed chest pain.
I spoke with pulmonary service, anticipate repeat CT chest early next week.
Hyponatremia -hypovolemic. Sodium stable at 134. Hypovolemia improved.
Alcohol use disorder -abstinence strongly encouraged given presentation with pneumonia. No signs of alcohol withdrawal so far.
Tobacco dependence -cessation advised.
Depression/anxiety disorder -continue home meds.
Full code
Anticipated Discharge: > 48 hours
Subjective/Interval History
-
Date of Service: June 08, 2024
Patient seen and examined. Complaining of mild irritation from chest tube. Denies shortness of breath.
Objective Data
-
Labs:
Laboratory Results
06/08/24
07:04
WBC 12.4 H
Hgb 11.6 L
Hct 33.8 L
Plt Count 381
Sodium 134 L
Potassium 4.1
Chloride 105
Carbon Dioxide 25
BUN 12
Creatinine 0.8
Glucose 95
Calcium 8.6
Total Bilirubin 0.9
AST 22
ALT 28
Alkaline Phosphatase 199 H
Vital Signs:
Vital Signs
Temp Pulse Resp BP Pulse Ox
98.2 F 73 16 123/78 100
06/08/24 07:54 06/08/24 07:54 06/08/24 07:54 06/08/24 07:54 06/08/24 07:54
I&O
06/07/24 06/08/24 06/09/24
06:59 06:59 06:59
Intake Total 1919 1560 / 1560
Output Total 390 / 390
Balance 1919 1170 / 1170
Review of Systems
-
History Source: Patient
All other systems: Reviewed and negative
--- NOTE | 2024-06-08 10:12 | PTCARENOTE ---
pt was seen by IR this morning at 09:25 and gave TPA tolerated well. PT to turn every 30 minutes to get the TPA moving around and to unclamp chest tube at 11:25am. Will continue to monitor pt .
--- NOTE | 2024-06-08 10:21 | W.PN.PUL3 ---
Today's Communication / Plan
-
Daily intrapleural lytic therapy for now
Chest tube to suction
Continue antibiotics
DVT prophylaxis
Daily chest x-ray
Assessment
-
24-year-old male with daily alcohol use, ongoing cigarette/vape presents with acute onset right-sided chest discomfort 05/31. Symptoms persisted along with productive cough, fevers, sweats, started on ceftriaxone/doxycycline 06/05, prompted to the ED
per primary because of tachycardia and progressive symptoms. Chest x-ray shows right lower lobe cavitary pneumonia
Cavitary right lower lobe pneumonia
Patchy right middle lobe infiltrate
Right hilar and mediastinal adenopathy
Empyema, chest tube 06/07
s/p Intrapleural lytic therapy 06/07, 06/08
Acute right-sided chest discomfort, symptoms 05/31
Fevers/night sweats
Leukocytosis
Conditions present prior to admission
Daily alcohol use
Four [place] Lights/day
Ongoing tobacco/vaping
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
Plan/recommendations
At this time, the patient appears stable, nontoxic.
Significant improvement post chest tube placement
Pleural fluid consistent with empyema
Moving forward
Continue with broad-spectrum antibiotics. Unasyn is appropriate therapy at this time, appropriately dosed
Patient with daily alcohol use. Reviewed with patient that this may increase his risk for cavitary pneumonia
Continue chest tube to suction, intrapleural lytic therapy daily for now. Reviewed with interventional radiology
ID following
Sputum culture
Legionella and streptococcal antigen negative
IV fluids
Discussed importance of tobacco and alcohol cessation
Follow for response to antibiotic therapy
Daily chest x-ray
Eventual repeat CT chest
Bronchoscopy may be indicated but hopefully with IV antibiotics, patient will improve both objectively and subjectively, radiographically
DVT prophylaxis: Lovenox therapy
GI prophylaxis: Not indicated
Reviewed with patient and mother at bedside
Reviewed with interventional radiology, primary service
Subjective Data
-
Date of Service:
Date of Service: June 08, 2024
Subjective:
Patient feels much improved since chest tube placement. Able to take deeper breath. Foul smeeling drainage noted per discussion with IR
Objective Data
Data Reviewed
Vital Signs / I&O / Oxygen:
Vital Signs
Temp Pulse Resp BP Pulse Ox
98.2 F 73 16 123/78 100
06/08/24 07:54 06/08/24 07:54 06/08/24 07:54 06/08/24 07:54 06/08/24 07:54
Intake and Output
06/07/24 06/08/24 06/09/24
06:59 06:59 06:59
Intake Total 1919 / 1919 1560 / 1560
Output Total 390 / 390
Balance 1919 / 0 1170 / 1170
SaO2 100
Physical Exam
General: Comfortable
HEENT: Normocephalic and Anicteric
Cardiovascular: S1-S2, Regular Rhythm (Tachycardic), Murmur (n), Peripheral Edema (n) and Calf Tenderness (n)
Respiratory: Wheeze (n), Crackles (Few right base), Rhonchi (n), Non-Labored Respirations, Chest Tube (No airleak, right chest tube) and Other (Decreased breath sounds right base, dullness to percussion)
GI: Soft, Non Distended and Non Tender
Neurology: Awake, Alert and No Motor Deficits (Able to sit up without assistance)
Skin: Cyanosis (n), Jaundice (n), Rash (n) and Other (Tattoo)
Labs/Micro/Reports
Lab Data
06/08/24 07:04
06/08/24 07:04
Microbiology
06/06/24 22:02 Sputum Respiratory Culture - Preliminary
Usual Respiratory Jessica
06/06/24 22:02 Sputum Gram Stain - Preliminary
06/07/24 16:44 Pleural Fluid Gram Stain - Preliminary
06/07/24 16:44 Pleural Fluid Fungal Culture - Preliminary
Culture in progress.
Positive cultures are reported as soon as detected.
Final report to follow in four to five weeks.
06/06/24 13:31 Blood/Venous Blood Culture - Preliminary
No Growth in 24 hours- Final report to follow
06/06/24 16:36 Urine Legionella Urinary Antigen - Final
Negative for Legionella pneumophila Serogroup 1 antigen.
A negative result does not rule out the possiblity of
Legionella infection due to other serogroups or species of
Legionella. Clinical correlation is recommended.
06/06/24 16:36 Urine Streptococcus pneumoniae Antigen (M - Final
Negative for Streptococcus pneumoniae antigen.
A negative result does not exclude infection with
Streptococcus pneumoniae. Clinical correlation is
recommended.
[2024-06-08] MEDS: TYLENOL 650 MG PO (11:39)
[2024-06-08] MEDS: DILAUDID 0.5 MG IV ×2 (12:02→20:13)
--- NOTE | 2024-06-08 13:57 | W.PN.ID1 ---
Date of Service
Date of Service: June 08, 2024
Today's Communication
continue unsyn
Assessment / Plan
Right lower lobe pneumonia with suspected pulmonic abscess
- possibly from aspiration event
Leukocytosis
Fever
Recommendations:
S/p chest tube placement 06/07
Abscess culture 06/07: strep species
Sputum culture usual resp james
Continue with Unasyn.
Further antibiotic recommendations as additional data is returned.
Monitor white count and temperature curve.
Chief Complaint
-: Other (lung abscess)
Subjective / Review of Systems
fever curve improving
chest tube placed yesterday, getting intrapleural lytic therapy and chest tube to suction
Vital Signs / Physical Exam
Vital Signs
Vital Signs
Temp Pulse Resp BP Pulse Ox
98.2 F 73 16 123/78 100
06/08/24 07:54 06/08/24 07:54 06/08/24 07:54 06/08/24 07:54 06/08/24 07:54
Physical Exam
Constitutional: No Acute Distress
Cardiovascular: Regular Rate and S1/S2; Negative Murmur or Rub
Pulmonary: Clear and Symmetric; Negative Wheezes or Rales
Gastrointestinal: Soft, Non Tender, Non Distended and Normal Bowel Sounds
Skin: Warm and Dry; Negative Rash or Jaundice
Lines: Other (chest tube)
Objective Data
Lab Data
Lab Results
06/08/24 07:04
06/08/24 07:04
Estimated Creat Clear > 125 ml/min 06/08/24 07:04
Lactic Acid Cancelled 06/06/24 17:15
Total Bilirubin 0.9 mg/dl (0.2-1.3) 06/08/24 07:04
AST 22 U/L (17-59) 06/08/24 07:04
ALT 28 U/L (0-50) 06/08/24 07:04
Alkaline Phosphatase 199 U/L (38-126) H 06/08/24 07:04
Most recent labs reviewed.
Micro Results:
06/06/24 13:31 Blood Culture - Preliminary
Blood/Venous No Growth in 48 hours- Final report to follow
06/07/24 16:44 Body Fluid Culture - Preliminary
Pleural Fluid Streptococcus species
Gram Stain - Preliminary
06/06/24 22:02 Respiratory Culture - Preliminary
Sputum Usual Respiratory James
Gram Stain - Preliminary
06/07/24 16:44 Fungal Smear - Pending
Pleural Fluid Fungal Culture - Preliminary
Culture in progress.
Positive cultures are reported as soon as detected.
Final report to follow in four to five weeks.
06/06/24 16:36 Legionella Urinary Antigen - Final
Urine Negative for Legionella pneumophila Serogroup 1 antigen.
A negative result does not rule out the possiblity of
Legionella infection due to other serogroups or species of
Legionella. Clinical correlation is recommended.
Streptococcus pneumoniae Antigen (M - Final
Negative for Streptococcus pneumoniae antigen.
A negative result does not exclude infection with
Streptococcus pneumoniae. Clinical correlation is
recommended.
Imaging:
06/06/2024 CT chest with IV contrast: A large abnormal fluid collection with air bubbles and air-fluid level in the right lower hemithorax. Empyema with accompanying parenchymal abscess cannot be entirely excluded. There are small patchy opacities
in the right middle lobe at least in part representing subsegmental atelectasis, but cannot exclude pneumonitis. There is also suspected right hilar and mid mediastinal lymphadenopathy. Please see full dictation for additional detail. Film
personally viewed.
06/06/2024 CXR (2 view): Worsening airspace disease within the right lower lobe with new central lucency and possible air-fluid level suspicious for possible pulmonic abscess. Left lung is clear. Please see full dictation for additional detail.
[2024-06-08 15:38] VITALS: BP 105/59
[2024-06-08] MEDS: LOVENOX 40 MG SC (17:31)
[2024-06-08] MEDS: BENADRYL 50 MG PO (20:14)
[2024-06-08] MEDS: FLUSH (NSS) 1 FLUSH IV (20:16)
[2024-06-08] MEDS: CATAPRES 0.3 MG PO (21:52)
[2024-06-08 23:00] VITALS: BP 113/61
[2024-06-09] MEDS: DILAUDID 0.5 MG IV ×6 (02:03→22:25)
[2024-06-09] MEDS: FLUSH (NSS) 2 FLUSH IV ×4 (02:04→22:23)
[2024-06-09] MEDS: UNASYN IV ×4 (02:04→20:15)
[2024-06-09 07:37] VITALS: BP 133/64
[2024-06-09 08:08] LABS: % Basophils 0.7 % (0-2); % Eosinophils 3.6 % (0-6); % Immature Granulocytes 3.4 % (0-0.5); % Lymphocytes 16.5 % (20.5-51.1); % Monocytes 9.8 % (1.7-9.3); Absolute Basophils 0.1 10^3/uL (0-0.2); Absolute Eosinophils 0.4 10^3/uL (0-0.7); Absolute Immature Granulocytes 0.4 10^3/uL (0-0.05); Absolute Lymphocytes 1.9 10^3/uL (1.2-3.4); Absolute Monocytes 1.1 10^3/uL (0.1-0.6); Absolute Neutrophils 7.5 10^3/uL (1.4-6.5); Hematocrit 34.1 % (39.0-52.0); Hemoglobin 11.7 g/dL (13.0-18.0); Mean Corp Hgb Conc. 34.3 g/dL (33.0-37.0); Mean Corpuscular Volume 93.2 fL (80.0-94.0); Mean Platelet Volume 9.6 fL (7.4-10.4); Nucleated Red Blood Cells % 0 % (-); Platelet Count 435 10^3/uL (130-400); Red Blood Cell Count 3.66 10^6/uL (4.70-6.10); Red Cell Dist. Width 12.7 % (11.5-14.5); White Blood Cell Count 11.3 10^3/uL (4.8-10.8)
[2024-06-09] MEDS: WELLBUTRIN SR (12 hour sustained release) 100 MG PO ×2 (08:40→20:15)
[2024-06-09] MEDS: LAMICTAL 50 MG PO ×2 (08:40→20:15)
[2024-06-09] MEDS: PROZAC 80 MG PO (08:41)
--- NOTE | 2024-06-09 09:33 | W.PN.HOSP.TC ---
Today's Communication/Plan
-
Bowel regimen
Chest x-ray
Continue antibiotics
Assessment / Plan
Assessment / Plan
Gen-AAOx3, NAD
HEENT-NC, AT, anicteric, clear oral mm
Neck-supple
CV-reg, no M, +S1/S2
Lungs-clear B/L
Abd-soft, NT, ND
Ext-no edema
Musculoskeletal-no cyanosis, clubbing
Skin-warm and dry, erythematous left posterior back, no rashes elsewhere. Right lateral chest wall chest tube
Neuro-grossly non-focal
Psych-calm, cooperative
Sepsis due to right-sided cavitary pneumonia/empyema - CT chest reviewed. Discussed with pulmonary. IR placed chest tube on June 07, also getting thrombolysis through tube. Continue IV Unasyn. Infectious disease following. Fluid culture
positive for strep bacteria, final culture pending. Blood cultures negative so far. For chest x-ray today.
HIV negative. IV Toradol as needed chest pain.
I spoke with pulmonary service, anticipate repeat CT chest early next week.
Clinically improving with improvement in leukocytosis. Afebrile.
Hyponatremia -hypovolemic. Sodium stable at 134. Hypovolemia improved. Recheck labs in the morning.
Constipation -likely due to limited mobility and opiates. Bowel regimen ordered.
Heat rash -left posterior back. Recommend offloading. Discussed with patient. No evidence of allergic reaction.
Alcohol use disorder -abstinence strongly encouraged given presentation with pneumonia. No signs of alcohol withdrawal so far.
Tobacco dependence -cessation advised.
Depression/anxiety disorder -continue home meds.
Full code
Anticipated Discharge: > 48 hours
Subjective/Interval History
-
Date of Service: June 09, 2024
Patient seen and examined. Complaining of right-sided chest pain.
Objective Data
-
Labs:
Laboratory Results
06/09/24
07:29
WBC 11.3 H
Hgb 11.7 L
Hct 34.1 L
Plt Count 435 H
Vital Signs:
Vital Signs
Temp Pulse Resp BP Pulse Ox
98.3 F 75 16 133/64 99
06/09/24 07:37 06/09/24 07:37 06/09/24 07:37 06/09/24 07:37 06/09/24 07:37
I&O
06/08/24 06/09/24 06/10/24
06:59 06:59 06:59
Intake Total 1560 / 1560 2280 / 2280
Output Total 390 / 390 1885 / 1885
Balance 1170 / 1170 395 / 395
Review of Systems
-
History Source: Patient
All other systems: Reviewed and negative
--- NOTE | 2024-06-09 10:14 | W.PN.ID1 ---
Date of Service
Date of Service: June 09, 2024
Today's Communication
Continue Unasyn.
Assessment / Plan
Right lower lobe pneumonia with suspected pulmonic abscess
- possibly from aspiration event
Empyema -S/p chest tube placement 06/07
Leukocytosis improving
Fever - resolving
Recommendations:
Pleural culture 06/07: strep species. Gram stain moderate GNR, many GPC chain
Continue with Unasyn.
Continue chest tube drainage.
Monitor white count and temperature curve.
Chief Complaint
-: Other (lung abscess)
Subjective / Review of Systems
Cough resolved
Vital Signs / Physical Exam
Vital Signs
Vital Signs
Temp Pulse Resp BP Pulse Ox
98.3 F 75 16 133/64 99
06/09/24 07:37 06/09/24 07:37 06/09/24 07:37 06/09/24 07:37 06/09/24 07:37
Physical Exam
Constitutional: No Acute Distress
Pulmonary: Other (Decreased BS R base, chest tube in place)
Gastrointestinal: Soft and Non Tender
Neurological: AO x 3
Objective Data
Lab Data
Lab Results
06/09/24 07:29
06/08/24 07:04
Estimated Creat Clear > 125 ml/min 06/08/24 07:04
Lactic Acid Cancelled 06/06/24 17:15
Total Bilirubin 0.9 mg/dl (0.2-1.3) 06/08/24 07:04
AST 22 U/L (17-59) 06/08/24 07:04
ALT 28 U/L (0-50) 06/08/24 07:04
Alkaline Phosphatase 199 U/L (38-126) H 06/08/24 07:04
Most recent labs reviewed.
Micro Results:
06/06/24 22:02 Respiratory Culture - Final
Sputum Usual Respiratory Jessica
Gram Stain - Final
06/06/24 13:31 Blood Culture - Preliminary
Blood/Venous No Growth in 48 hours- Final report to follow
06/07/24 16:44 Body Fluid Culture - Preliminary
Pleural Fluid Streptococcus species
Gram Stain - Preliminary
06/07/24 16:44 Fungal Smear - Pending
Pleural Fluid Fungal Culture - Preliminary
Culture in progress.
Positive cultures are reported as soon as detected.
Final report to follow in four to five weeks.
06/06/24 16:36 Legionella Urinary Antigen - Final
Urine Negative for Legionella pneumophila Serogroup 1 antigen.
A negative result does not rule out the possiblity of
Legionella infection due to other serogroups or species of
Legionella. Clinical correlation is recommended.
Streptococcus pneumoniae Antigen (M - Final
Negative for Streptococcus pneumoniae antigen.
A negative result does not exclude infection with
Streptococcus pneumoniae. Clinical correlation is
recommended.
Imaging:
06/06/2024 CT chest with IV contrast: A large abnormal fluid collection with air bubbles and air-fluid level in the right lower hemithorax. Empyema with accompanying parenchymal abscess cannot be entirely excluded. There are small patchy opacities
in the right middle lobe at least in part representing subsegmental atelectasis, but cannot exclude pneumonitis. There is also suspected right hilar and mid mediastinal lymphadenopathy. Please see full dictation for additional detail. Film
personally viewed.
06/06/2024 CXR (2 view): Worsening airspace disease within the right lower lobe with new central lucency and possible air-fluid level suspicious for possible pulmonic abscess. Left lung is clear. Please see full dictation for additional detail.
[2024-06-09] MEDS: MIRALAX 17 GRAMS PO (10:16)
[2024-06-09] MEDS: COLACE 100 MG PO (10:16)
[2024-06-09] MEDS: TORADOL 30 MG IV (12:12)
--- NOTE | 2024-06-09 12:14 | W.PN.PUL3 ---
Today's Communication / Plan
-
Continue antibiotics
Repeat PA lateral chest x-ray 06/10
Hold on further intrapleural lytic therapy at this time
DVT prophylaxis
Assessment
-
24-year-old male with daily alcohol use, ongoing cigarette/vape presents with acute onset right-sided chest discomfort 05/31. Symptoms persisted along with productive cough, fevers, sweats, started on ceftriaxone/doxycycline 06/05, prompted to the ED
per primary because of tachycardia and progressive symptoms. Chest x-ray shows right lower lobe cavitary pneumonia
Cavitary right lower lobe pneumonia
Patchy right middle lobe infiltrate
Right hilar and mediastinal adenopathy
Empyema, chest tube 06/07
s/p Intrapleural lytic therapy 06/07, 06/08
Acute right-sided chest discomfort, symptoms 05/31
Fevers/night sweats
Leukocytosis
Conditions present prior to admission
Daily alcohol use
Four [place] Lights/day
Ongoing tobacco/vaping
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
Plan/recommendations
At this time, the patient appears stable, nontoxic.
Significant improvement post chest tube placement
Pleural fluid consistent with empyema
Fluid is drained about 750 to 800 cc over the last 24 hours
Received intrapleural tPA 06/07 and 06/08
Chest x-ray per my review this morning appears to be improved especially on lateral imaging
Moving forward
Continue with broad-spectrum antibiotics. Unasyn is appropriate therapy at this time, appropriately dosed
Patient with daily alcohol use. Reviewed with patient that this may increase his risk for cavitary pneumonia
Continue chest tube to suction, intrapleural lytic therapy daily for now. Reviewed with interventional radiology
ID following
Pleural fluid positive for Streptococcus
Sputum culture
Legionella and streptococcal antigen negative
Will hold on further tPA through chest tube at this time
Repeat PA/lateral chest x-ray 06/10 given difficulty to assess pleural fluid collection
If remains stable, will consider repeat CT chest imaging 06/11 at determine timing of chest tube removal versus additional lytic therapy
Discussed importance of tobacco and alcohol cessation
Bronchoscopy may be indicated but hopefully with IV antibiotics, patient will improve both objectively and subjectively, radiographically
PA and lateral appears to be improved
DVT prophylaxis: Lovenox therapy
GI prophylaxis: Not indicated
Reviewed with patient and primary service
Subjective Data
-
Date of Service:
Date of Service: June 09, 2024
Subjective:
Patient continues to improve subjectively. Denies hemoptysis, nausea, abdominal pain. Chest tube discomfort noted.
Objective Data
Data Reviewed
Vital Signs / I&O / Oxygen:
Vital Signs
Temp Pulse Resp BP Pulse Ox
98.3 F 75 16 133/64 99
06/09/24 07:37 06/09/24 07:37 06/09/24 07:37 06/09/24 07:37 06/09/24 07:37
Intake and Output
06/08/24 06/09/24 06/10/24
06:59 06:59 06:59
Intake Total 1560 / 1560 2280 / 2280
Output Total 390 / 390 1885 / 1885
Balance 1170 / 1170 395 / 395
SaO2 99
Physical Exam
General: Comfortable
HEENT: Normocephalic and Anicteric
Cardiovascular: S1-S2, Regular Rhythm (Tachycardic), Murmur (n), Peripheral Edema (n) and Calf Tenderness (n)
Respiratory: Wheeze (n), Crackles (Few right base), Rhonchi (n), Non-Labored Respirations, Chest Tube (No airleak, right chest tube) and Other (Decreased breath sounds right base)
GI: Soft, Non Distended and Non Tender
Neurology: Awake, Alert and No Motor Deficits (Able to sit up without assistance)
Skin: Cyanosis (n), Jaundice (n), Rash (n) and Other (Tattoo)
Labs/Micro/Reports
Lab Data
06/09/24 07:29
06/08/24 07:04
Microbiology
06/06/24 22:02 Sputum Respiratory Culture - Final
Usual Respiratory Jessica
06/06/24 22:02 Sputum Gram Stain - Final
06/06/24 13:31 Blood/Venous Blood Culture - Preliminary
No Growth in 48 hours- Final report to follow
06/07/24 16:44 Pleural Fluid Body Fluid Culture - Preliminary
Streptococcus species
06/07/24 16:44 Pleural Fluid Gram Stain - Preliminary
06/07/24 16:44 Pleural Fluid Fungal Culture - Preliminary
Culture in progress.
Positive cultures are reported as soon as detected.
Final report to follow in four to five weeks.
06/06/24 16:36 Urine Legionella Urinary Antigen - Final
Negative for Legionella pneumophila Serogroup 1 antigen.
A negative result does not rule out the possiblity of
Legionella infection due to other serogroups or species of
Legionella. Clinical correlation is recommended.
06/06/24 16:36 Urine Streptococcus pneumoniae Antigen (M - Final
Negative for Streptococcus pneumoniae antigen.
A negative result does not exclude infection with
Streptococcus pneumoniae. Clinical correlation is
recommended.
[2024-06-09] MEDS: BENADRYL 50 MG PO ×2 (14:06→20:15)
[2024-06-09 15:34] VITALS: BP 105/58
[2024-06-09] MEDS: ROXICODONE 5 MG PO ×2 (16:39→21:12)
[2024-06-09] MEDS: LOVENOX 40 MG SC (16:41)
--- NOTE | 2024-06-09 17:28 | PTCARENOTE ---
PT given IV dilaudid for severe left lung pain. pain was only relieved for two hours only. PT received IV toradol to see if it would help. His pain was moderate and he felt very uncomfortable. He required IV dilaudid at the four paola. His pain was
fully relieved but at the two hour paola his pain returned. I did let the MD know and oxycodone was ordered and given. He is currently sleeping. mother at bedside. PT back over most of back was red warm no raised markes noted. along the edges of
the red rash were small raised pale areas. pt co itiching and received june SILVEIRA requested him to stay oob in chair. pt spent most of day OOB in chair. CT site cdi drained 100 ml serosangous liquid.
[2024-06-09] MEDS: COLACE PO (20:15)
[2024-06-09] MEDS: CATAPRES 0.3 MG PO (21:12)
[2024-06-09 23:00] VITALS: BP 108/66
[2024-06-10] MEDS: TORADOL 30 MG IV ×3 (02:52→19:22)
[2024-06-10] MEDS: UNASYN IV ×4 (02:53→21:06)
[2024-06-10] MEDS: FLUSH (NSS) 2 FLUSH IV ×3 (02:53→22:47)
[2024-06-10 07:00] VITALS: BP 123/83
[2024-06-10 07:28] LABS: Hematocrit 31.8 % (39.0-52.0); Hemoglobin 10.7 g/dL (13.0-18.0); Mean Corp Hgb Conc. 33.6 g/dL (33.0-37.0); Mean Corpuscular Hgb 31.8 pg (27.0-31.0); Mean Corpuscular Volume 94.4 fL (80.0-94.0); Mean Platelet Volume 9.7 fL (7.4-10.4); Platelet Count 404 10^3/uL (130-400); Red Blood Cell Count 3.37 10^6/uL (4.70-6.10); Red Cell Dist. Width 12.7 % (11.5-14.5); White Blood Cell Count 8.4 10^3/uL (4.8-10.8)
[2024-06-10 07:56] LABS: ALT (SGPT) 51 U/L (0-50); AST (SGOT) 60 U/L (17-59); Albumin 2.6 g/dl (3.5-5.0); Alkaline Phosphatase 181 U/L (38-126); Blood Urea Nitrogen 7 mg/dl (9-20); Calcium 8.8 mg/dl (8.4-10.2); Carbon Dioxide 27 mmol/L (22-30); Chloride 103 mmol/L (98-107); Estimated Creatinine Clearance > 125 ml/min; Glucose 84 mg/dl (70-99); Potassium 4.3 mmol/L (3.5-5.1); Sodium 135 mmol/L (135-145); Total Bilirubin 0.4 mg/dl (0.2-1.3); Total Protein 5.3 g/dl (6.3-8.2); eGFR > 60.00
[2024-06-10] MEDS: LAMICTAL 50 MG PO ×2 (08:35→21:06)
[2024-06-10] MEDS: PROZAC 80 MG PO (08:35)
[2024-06-10] MEDS: WELLBUTRIN SR (12 hour sustained release) 100 MG PO ×2 (08:36→21:06)
[2024-06-10] MEDS: MIRALAX PO (08:36)
[2024-06-10] MEDS: COLACE PO ×2 (08:37→21:06)
[2024-06-10 08:41] LABS: % Eosinophils 4.2 % (0-6); % Immature Granulocytes 5.1 % (0-0.5); % Monocytes 7.5 % (1.7-9.3); % Neutrophils 57.2 % (42.2-75.2); Absolute Basophils 0.1 10^3/uL (0-0.2); Absolute Eosinophils 0.4 10^3/uL (0-0.7); Absolute Immature Granulocytes 0.4 10^3/uL (0-0.05); Absolute Lymphocytes 2.1 10^3/uL (1.2-3.4); Absolute Monocytes 0.6 10^3/uL (0.1-0.6); Absolute Neutrophils 4.8 10^3/uL (1.4-6.5); Nucleated Red Blood Cells % 0 % (-)
[2024-06-10] MEDS: DILAUDID 0.5 MG IV ×3 (08:41→22:47)
--- NOTE | 2024-06-10 10:33 | W.PN.HOSP.TC ---
Today's Communication/Plan
-
Continue antibiotics
Assessment / Plan
Assessment / Plan
Gen-AAOx3, NAD
HEENT-NC, AT, anicteric, clear oral mm
Neck-supple
CV-reg, no M, +S1/S2
Lungs-clear B/L
Abd-soft, NT, ND
Ext-no edema
Musculoskeletal-no cyanosis, clubbing
Skin-warm and dry, erythematous left posterior back, no rashes elsewhere. Right lateral chest wall chest tube
Neuro-grossly non-focal
Psych-calm, cooperative
Sepsis due to right-sided cavitary pneumonia/empyema - CT chest reviewed. Discussed with pulmonary. IR placed chest tube on June 07, also getting thrombolysis through tube. Continue IV Unasyn. Infectious disease following. Fluid culture
positive for Streptococcus anginosus. Blood cultures negative so far. Daily chest x-rays per pulmonary. Overall films demonstrate improvement. White blood cell count normalized. Afebrile.
HIV negative.
Continue analgesics for right sided back pain related to pneumonia and chest tube.
Hyponatremia -improved.
Constipation -improved.
Heat rash -left posterior back. Recommend offloading. Discussed with patient. No evidence of allergic reaction.
Alcohol use disorder -abstinence strongly encouraged given presentation with pneumonia. No signs of alcohol withdrawal so far.
Tobacco dependence -cessation advised.
Depression/anxiety disorder -continue home meds.
Full code
Family updated at the bedside.
Anticipated Discharge: > 48 hours
Subjective/Interval History
-
Date of Service: June 10, 2024
Patient seen and examined. Denies shortness of breath. Overall feeling better, less pain.
Objective Data
-
Labs:
Laboratory Results
06/10/24
07:02
WBC 8.4
Hgb 10.7 L
Hct 31.8 L
Plt Count 404 H
Sodium 135
Potassium 4.3
Chloride 103
Carbon Dioxide 27
BUN 7 L
Creatinine 0.8
Glucose 84
Calcium 8.8
Total Bilirubin 0.4
AST 60 H
ALT 51 H
Alkaline Phosphatase 181 H
Vital Signs:
Vital Signs
Temp Pulse Resp BP Pulse Ox
98.2 F 66 16 123/83 99
06/10/24 07:00 06/10/24 07:00 06/10/24 07:00 06/10/24 07:00 06/10/24 07:00
I&O
06/09/24 06/10/24 06/11/24
06:59 06:59 06:59
Intake Total 2280 / 2280 1920 / 1920
Output Total 1885 / 1885 980 / 980
Balance 395 / 395 940 / 940
Review of Systems
-
History Source: Patient
All other systems: Reviewed and negative
[2024-06-10] MEDS: ROXICODONE 5 MG PO ×3 (10:41→23:41)
--- NOTE | 2024-06-10 11:02 | W.PN.ID1 ---
Date of Service
Date of Service: June 10, 2024
Today's Communication
Continue Unasyn
Assessment / Plan
Right lower lobe pneumonia with suspected pulmonic abscess
- possibly from aspiration event
Empyema -S/p chest tube placement 06/07
Leukocytosis - resolved
Fever - resolved
Recommendations:
Pleural culture 06/07: Strep anginosus. Gram stain moderate GNR, many GPC chain
Continue with Unasyn.
Continue chest tube drainage.
Chief Complaint
-: Other (lung abscess)
Subjective / Review of Systems
Feeling better.
Vital Signs / Physical Exam
Vital Signs
Vital Signs
Temp Pulse Resp BP Pulse Ox
98.2 F 66 16 123/83 99
06/10/24 07:00 06/10/24 07:00 06/10/24 07:00 06/10/24 07:00 06/10/24 07:00
Physical Exam
Constitutional: No Acute Distress
Pulmonary: Other (Decreased BS R base, chest tube in place)
Gastrointestinal: Soft and Non Tender
Neurological: AO x 3
Objective Data
Lab Data
Lab Results
06/10/24 07:02
06/10/24 07:02
Estimated Creat Clear > 125 ml/min 06/10/24 07:02
Lactic Acid Cancelled 06/06/24 17:15
Total Bilirubin 0.4 mg/dl (0.2-1.3) 06/10/24 07:02
AST 60 U/L (17-59) H 06/10/24 07:02
ALT 51 U/L (0-50) H 06/10/24 07:02
Alkaline Phosphatase 181 U/L (38-126) H 06/10/24 07:02
Most recent labs reviewed.
Micro Results:
06/06/24 13:31 Blood Culture - Preliminary
Blood/Venous No Growth in 72 hours- Final report to follow
06/07/24 16:44 Body Fluid Culture - Preliminary
Pleural Fluid Streptococcus anginosus
Gram Stain - Preliminary
06/06/24 22:02 Respiratory Culture - Final
Sputum Usual Respiratory Jessica
Gram Stain - Final
06/07/24 16:44 Fungal Smear - Pending
Pleural Fluid Fungal Culture - Preliminary
Culture in progress.
Positive cultures are reported as soon as detected.
Final report to follow in four to five weeks.
06/06/24 16:36 Legionella Urinary Antigen - Final
Urine Negative for Legionella pneumophila Serogroup 1 antigen.
A negative result does not rule out the possiblity of
Legionella infection due to other serogroups or species of
Legionella. Clinical correlation is recommended.
Streptococcus pneumoniae Antigen (M - Final
Negative for Streptococcus pneumoniae antigen.
A negative result does not exclude infection with
Streptococcus pneumoniae. Clinical correlation is
recommended.
Imaging:
06/06/2024 CT chest with IV contrast: A large abnormal fluid collection with air bubbles and air-fluid level in the right lower hemithorax. Empyema with accompanying parenchymal abscess cannot be entirely excluded. There are small patchy opacities
in the right middle lobe at least in part representing subsegmental atelectasis, but cannot exclude pneumonitis. There is also suspected right hilar and mid mediastinal lymphadenopathy. Please see full dictation for additional detail. Film
personally viewed.
06/06/2024 CXR (2 view): Worsening airspace disease within the right lower lobe with new central lucency and possible air-fluid level suspicious for possible pulmonic abscess. Left lung is clear. Please see full dictation for additional detail.
--- NOTE | 2024-06-10 13:03 | W.PN.PUL3 ---
Today's Communication / Plan
-
CT chest without contrast in a.m.
Continue antibiotics
Hopefully chest tube out in the next 24 to 48 hours
Assessment
-
24-year-old male with daily alcohol use, ongoing cigarette/vape presents with acute onset right-sided chest discomfort 05/31. Symptoms persisted along with productive cough, fevers, sweats, started on ceftriaxone/doxycycline 06/05, prompted to the ED
per primary because of tachycardia and progressive symptoms. Chest x-ray shows right lower lobe cavitary pneumonia
Cavitary right lower lobe pneumonia
Patchy right middle lobe infiltrate
Right hilar and mediastinal adenopathy
Empyema, chest tube 06/07
s/p Intrapleural lytic therapy 06/07, 06/08
Acute right-sided chest discomfort, symptoms 05/31
Fevers/night sweats
Leukocytosis
Conditions present prior to admission
Daily alcohol use
Four [place] Lights/day
Ongoing tobacco/vaping
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
Plan/recommendations
At this time, the patient appears stable, nontoxic.
Significant improvement post chest tube placement
Pleural fluid consistent with empyema
Fluid is drained about 750 to 800 cc 48 hours ago, 100 cc over the last 24 hours
Received intrapleural tPA 06/07 and 06/08
Chest x-ray per my review this morning appears to be improved especially on lateral imaging
Moving forward
Continue with broad-spectrum antibiotics. Unasyn is appropriate therapy at this time, appropriately dosed
Patient with daily alcohol use. Reviewed with patient that this may increase his risk for cavitary pneumonia
Continue chest tube to suction, intrapleural lytic therapy daily for now. Reviewed with interventional radiology
ID following
Pleural fluid positive for Streptococcus
Sputum culture
Legionella and streptococcal antigen negative
Will hold on further tPA through chest tube at this time
CT chest without contrast 06/11 in a.m.
Depending on findings, will consider removal of chest tube
Discussed importance of tobacco and alcohol cessation
Bronchoscopy may be indicated but hopefully with IV antibiotics, patient will improve both objectively and subjectively, radiographically
PA and lateral appears to be improved
DVT prophylaxis: Lovenox therapy
GI prophylaxis: Not indicated
Reviewed with patient, at bedside
Subjective Data
-
Date of Service:
Date of Service: June 10, 2024
Subjective:
Patient examined earlier this morning. Complaining of mild chest tube discomfort otherwise feeling well. Productive cough has improved. Had drained about 100 cc. Mother at bedside
Objective Data
Data Reviewed
Vital Signs / I&O / Oxygen:
Vital Signs
Temp Pulse Resp BP Pulse Ox
98.2 F 66 16 123/83 99
06/10/24 07:00 06/10/24 07:00 06/10/24 07:00 06/10/24 07:00 06/10/24 07:00
Intake and Output
06/09/24 06/10/24 06/11/24
06:59 06:59 06:59
Intake Total 2280 / 2280 1920 / 1920
Output Total 1885 / 1885 980 / 980
Balance 395 / 395 940 / 940
SaO2 99
Physical Exam
General: Comfortable
HEENT: Normocephalic and Anicteric
Cardiovascular: S1-S2, Regular Rhythm (Tachycardic), Murmur (n), Peripheral Edema (n) and Calf Tenderness (n)
Respiratory: Wheeze (n), Crackles (Few right base), Rhonchi (n), Non-Labored Respirations, Chest Tube (No airleak, right chest tube) and Other (Decreased breath sounds right base)
GI: Soft, Non Distended and Non Tender
Neurology: Awake, Alert and No Motor Deficits (Able to sit up without assistance)
Skin: Cyanosis (n), Jaundice (n), Rash (n) and Other (Tattoo)
Labs/Micro/Reports
Lab Data
06/10/24 07:02
06/10/24 07:02
Microbiology
06/07/24 16:44 Pleural Fluid Body Fluid Culture - Final
Streptococcus anginosus
06/07/24 16:44 Pleural Fluid Gram Stain - Final
06/06/24 13:31 Blood/Venous Blood Culture - Preliminary
No Growth in 72 hours- Final report to follow
06/06/24 22:02 Sputum Respiratory Culture - Final
Usual Respiratory Jessica
06/06/24 22:02 Sputum Gram Stain - Final
06/07/24 16:44 Pleural Fluid Fungal Culture - Preliminary
Culture in progress.
Positive cultures are reported as soon as detected.
Final report to follow in four to five weeks.
--- NOTE | 2024-06-10 13:49 | PTCARENOTE ---
PT aaox3 pleasant. Vitals stable. PT co pain and received IV dilaudid , two hours after, oxycodone and two hours after IV toradol. Pt now resting with family at bedside and appears comfortable. Lungs decreased in bases but more bs heard in right
than yesterday, course in rul posterior and good vesicular sounds anterioroly. NO coughing noted. PT did admit that he has a little bit of reproducible pain in right sternal area with deep inspiration;. Cardiology told him it is a good sign of
lung re expansion. CT site CDI no drainage at sight. wound care to be done later today. Chest tube draining very small amount of clear output. PT went for CXR. HRR +PP no edema, pt denies any cp or palpitations. abd soft NT ND +Bs with two loose
stools and was incontinent of stool one time. urine clear yellow urine. pt ambulates steady and independently.
[2024-06-10 15:00] VITALS: BP 136/81
[2024-06-10] MEDS: LOVENOX 40 MG SC (17:19)
[2024-06-10] MEDS: NICODERM TRANSDERMAL 21 MG TRANSDERM (17:19)
[2024-06-10] MEDS: CATAPRES 0.3 MG PO (21:06)
[2024-06-10 22:42] VITALS: BP 127/79
[2024-06-11] MEDS: FLUSH (NSS) 2 FLUSH IV (02:16)
[2024-06-11] MEDS: UNASYN IV ×4 (02:16→20:00)
[2024-06-11] MEDS: DILAUDID 0.5 MG IV ×3 (06:39→22:41)
[2024-06-11] MEDS: PROZAC 80 MG PO (07:53)
[2024-06-11] MEDS: NICODERM TRANSDERMAL 21 MG TRANSDERM (07:53)
[2024-06-11] MEDS: WELLBUTRIN SR (12 hour sustained release) 100 MG PO ×2 (07:54→20:00)
[2024-06-11] MEDS: LAMICTAL 50 MG PO ×2 (07:54→20:00)
[2024-06-11 07:55] VITALS: BP 134/95
[2024-06-11] MEDS: COLACE PO ×2 (07:55→19:59)
[2024-06-11] MEDS: MIRALAX PO (07:55)
[2024-06-11] MEDS: ROXICODONE 5 MG PO ×2 (08:59→17:07)
--- NOTE | 2024-06-11 10:00 | W.PN.ID1 ---
Date of Service
Date of Service: June 11, 2024
Today's Communication
CT chest planned will follow up
Pleural culture 06/07: Strep anginosus. Gram stain moderate GNR, many GPC chain
Continue with Unasyn - eventual transition to orals
Chest tube per pulmonary
Assessment / Plan
Right lower lobe pneumonia with suspected pulmonic abscess
- possibly from aspiration event
Empyema -S/p chest tube placement 06/07
Leukocytosis - resolved
Fever - resolved
Alcohol use disorder
Recommendations:
CT chest planned will follow up
Pleural culture 06/07: Strep anginosus. Gram stain moderate GNR, many GPC chain
Continue with Unasyn - eventual transition to orals
Chest tube per pulmonary
follow clinically
Chief Complaint
-: Other (lung abscess)
Subjective / Review of Systems
afebrile
pain being managed
minimal output from the chest tube
Vital Signs / Physical Exam
Vital Signs
Vital Signs
Temp Pulse Resp BP Pulse Ox
98.3 F 76 16 134/95 97
06/11/24 07:55 06/11/24 07:55 06/11/24 07:55 06/11/24 07:55 06/11/24 07:55
Physical Exam
Constitutional: No Acute Distress
Cardiovascular: Regular Rate and S1/S2; Negative Murmur or Rub
Pulmonary: Non Labored; Negative Symmetric (right lower lung remains diminished, otherwise clear), Wheezes or Rales
Gastrointestinal: Soft, Non Tender, Non Distended and Normal Bowel Sounds
Skin: Warm and Dry; Negative Rash or Jaundice
Lines: Other (chest tube)
Objective Data
Lab Data
Lab Results
06/10/24 07:02
06/10/24 07:02
Estimated Creat Clear > 125 ml/min 06/10/24 07:02
Lactic Acid Cancelled 06/06/24 17:15
Total Bilirubin 0.4 mg/dl (0.2-1.3) 06/10/24 07:02
AST 60 U/L (17-59) H 06/10/24 07:02
ALT 51 U/L (0-50) H 06/10/24 07:02
Alkaline Phosphatase 181 U/L (38-126) H 06/10/24 07:02
Most recent labs reviewed.
Micro Results:
06/06/24 13:31 Blood Culture - Preliminary
Blood/Venous No Growth in 4 days- Final report to follow
06/07/24 16:44 Body Fluid Culture - Final
Pleural Fluid Streptococcus anginosus
Gram Stain - Final
06/06/24 22:02 Respiratory Culture - Final
Sputum Usual Respiratory Jessica
Gram Stain - Final
06/07/24 16:44 Fungal Smear - Pending
Pleural Fluid Fungal Culture - Preliminary
Culture in progress.
Positive cultures are reported as soon as detected.
Final report to follow in four to five weeks.
06/06/24 16:36 Legionella Urinary Antigen - Final
Urine Negative for Legionella pneumophila Serogroup 1 antigen.
A negative result does not rule out the possiblity of
Legionella infection due to other serogroups or species of
Legionella. Clinical correlation is recommended.
Streptococcus pneumoniae Antigen (M - Final
Negative for Streptococcus pneumoniae antigen.
A negative result does not exclude infection with
Streptococcus pneumoniae. Clinical correlation is
recommended.
Imaging:
06/06/2024 CT chest with IV contrast: A large abnormal fluid collection with air bubbles and air-fluid level in the right lower hemithorax. Empyema with accompanying parenchymal abscess cannot be entirely excluded. There are small patchy opacities
in the right middle lobe at least in part representing subsegmental atelectasis, but cannot exclude pneumonitis. There is also suspected right hilar and mid mediastinal lymphadenopathy. Please see full dictation for additional detail. Film
personally viewed.
06/06/2024 CXR (2 view): Worsening airspace disease within the right lower lobe with new central lucency and possible air-fluid level suspicious for possible pulmonic abscess. Left lung is clear. Please see full dictation for additional detail.
[2024-06-11] MEDS: TORADOL 30 MG IV ×2 (10:12→20:02)
--- NOTE | 2024-06-11 12:30 | W.PN.HOSP.TC ---
Today's Communication/Plan
-
Monitor vital signs
see plan
Continue with Ativan
Pulmonary see today
Continue with chest tube
CT scan pending
Assessment / Plan
Assessment / Plan
Gen-AAOx3, NAD
HEENT-NC, AT, anicteric, clear oral mm
Neck-supple
CV-reg, no M, +S1/S2
Lungs-clear B/L
Abd-soft, NT, ND
Ext-no edema
Musculoskeletal-no cyanosis, clubbing
Skin-warm and dry, erythematous left posterior back, no rashes elsewhere. Right lateral chest wall chest tube
Neuro-grossly non-focal
Psych-calm, cooperative
Sepsis due to right-sided cavitary pneumonia/empyema - CT chest reviewed. Discussed with pulmonary. IR placed chest tube on June 07, also getting thrombolysis through tube. Continue IV Unasyn. Infectious disease following. Fluid culture
positive for Streptococcus anginosus. Blood cultures negative so far. Daily chest x-rays per pulmonary. Overall films demonstrate improvement. White blood cell count normalized. Afebrile.
HIV negative.
Continue analgesics for right sided back pain related to pneumonia and chest tube.
CT chest 06/11
Pulmonary following
Pain control
Hyponatremia -improved.
Constipation -improved.
Heat rash -left posterior back. Recommend offloading. Discussed with patient. No evidence of allergic reaction.
Elevated LFTs
Continue to monitor
Alcohol use disorder -abstinence strongly encouraged given presentation with pneumonia. No signs of alcohol withdrawal so far.
Tobacco dependence -cessation advised.
Depression/anxiety disorder -continue home meds.
DVT prophylaxis
Lovenox
Full code
Family updated at the bedside.
Anticipated Discharge: 24 - 48 hours
Subjective/Interval History
-
Date of Service: June 11, 2024
Has some pain around chest tube
Objective Data
-
Vital Signs:
Vital Signs
Temp Pulse Resp BP Pulse Ox
98.3 F 76 16 134/95 97
06/11/24 07:55 06/11/24 07:55 06/11/24 07:55 06/11/24 07:55 06/11/24 07:55
I&O
06/10/24 06/11/24 06/12/24
06:59 06:59 06:59
Intake Total 1920 / 1920 1200 / 1200
Output Total 980 / 980 610 / 610
Balance 940 / 940 590 / 590
--- NOTE | 2024-06-11 13:07 | W.PN.PUL3 ---
Today's Communication / Plan
-
Await CT chest
Removal of chest tube versus repeat intrapleural lytic therapy pending CT findings
Continue antibiotics
Assessment
-
24-year-old male with daily alcohol use, ongoing cigarette/vape presents with acute onset right-sided chest discomfort 05/31. Symptoms persisted along with productive cough, fevers, sweats, started on ceftriaxone/doxycycline 06/05, prompted to the ED
per primary because of tachycardia and progressive symptoms. Chest x-ray shows right lower lobe cavitary pneumonia
Cavitary right lower lobe pneumonia
Patchy right middle lobe infiltrate
Right hilar and mediastinal adenopathy
Empyema, chest tube 06/07
s/p Intrapleural lytic therapy 06/07, 06/08
Acute right-sided chest discomfort, symptoms 05/31
Fevers/night sweats
Leukocytosis
Conditions present prior to admission
Daily alcohol use
Four [place] Lights/day
Ongoing tobacco/vaping
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
Plan/recommendations
At this time, the patient appears stable, nontoxic.
Significant improvement post chest tube placement
Pleural fluid consistent with empyema
Fluid is drained about 750 to 800 cc 48 hours ago, 100 cc over the last 24 hours, Minimal drainage since
Received intrapleural tPA 06/07 and 06/08
Chest exam has improved significantly
Moving forward
Continue with broad-spectrum antibiotics. Unasyn continues, ID following
Patient with daily alcohol use. Reviewed with patient that this may increase his risk for cavitary pneumonia
Continue chest tube to suction, intrapleural lytic therapy daily for now. Reviewed with interventional radiology
ID following
Pleural fluid positive for Streptococcus
Sputum culture
Legionella and streptococcal antigen negative
Await CT chest. Chest tube may be removed depending on findings
Will hold on further tPA through chest tube at this time, depending on CT chest may need to repeat
Reviewed with interventional radiology
Discussed importance of tobacco and alcohol cessation
Bronchoscopy may be indicated but hopefully with IV antibiotics, patient will improve both objectively and subjectively, radiographically
PA and lateral appears to be improved
DVT prophylaxis: Lovenox therapy
GI prophylaxis: Not indicated
Reviewed with patient, mother at bedside
Reviewed with interventional radiology
Subjective Data
-
Date of Service:
Date of Service: June 11, 2024
Subjective:
Patient continues to improve. Denies hemoptysis. Pain improved. Chest tube in place. Minimal drainage. Mother at bedside
Objective Data
Data Reviewed
Vital Signs / I&O / Oxygen:
Vital Signs
Temp Pulse Resp BP Pulse Ox
98.3 F 76 16 134/95 97
06/11/24 07:55 06/11/24 07:55 06/11/24 07:55 06/11/24 07:55 06/11/24 07:55
Intake and Output
06/10/24 06/11/24 06/12/24
06:59 06:59 06:59
Intake Total 1920 / 1920 1200 / 1200
Output Total 980 / 980 610 / 610
Balance 940 / 940 590 / 590
SaO2 97
Physical Exam
General: Comfortable
HEENT: Normocephalic and Anicteric
Cardiovascular: S1-S2, Regular Rhythm (Tachycardic), Murmur (n), Peripheral Edema (n) and Calf Tenderness (n)
Respiratory: Wheeze (n), Crackles (Few right base, improved breath sounds), Rhonchi (Few right base), Non-Labored Respirations and Chest Tube (No airleak, right chest tube)
GI: Soft, Non Distended and Non Tender
Neurology: Awake, Alert and No Motor Deficits (Able to sit up without assistance)
Skin: Cyanosis (n), Jaundice (n), Rash (improved erythema left back ) and Other (Tattoo)
Labs/Micro/Reports
Lab Data
06/10/24 07:02
06/10/24 07:02
Microbiology
06/06/24 13:31 Blood/Venous Blood Culture - Preliminary
No Growth in 4 days- Final report to follow
06/07/24 16:44 Pleural Fluid Body Fluid Culture - Final
Streptococcus anginosus
06/07/24 16:44 Pleural Fluid Gram Stain - Final
06/06/24 22:02 Sputum Respiratory Culture - Final
Usual Respiratory Jessica
06/06/24 22:02 Sputum Gram Stain - Final
--- NOTE | 2024-06-11 13:36 | CM ---
Reviewed chart, patient had chest tube placement. Still needs acute care.
Plan: Case management will continue to follow and assist with discharge planning. Home when stable.
[2024-06-11 15:11] VITALS: BP 129/82
--- NOTE | 2024-06-11 17:46 | PN.IRAD.UPD ---
Update Note - IRAD
- -
patient came down to department for chest tube string removal- tube was pulled bedside and string remained behind. patient arrived in dept, cleaned and prepped site, string was removed by Dr. Kunz and then site was dressed with primapore, no
complaints.
[2024-06-11] MEDS: LOVENOX SC (18:15)
[2024-06-11] MEDS: CATAPRES 0.3 MG PO (21:31)
[2024-06-11 23:19] VITALS: BP 125/78
[2024-06-12] MEDS: UNASYN IV ×3 (01:59→13:40)
[2024-06-12 07:00] VITALS: BP 115/78
[2024-06-12 07:12] LABS: % Basophils 0.6 % (0-2); % Eosinophils 1.4 % (0-6); % Lymphocytes 11.5 % (20.5-51.1); % Monocytes 7.4 % (1.7-9.3); % Neutrophils 76.1 % (42.2-75.2); Absolute Basophils 0.1 10^3/uL (0-0.2); Absolute Eosinophils 0.2 10^3/uL (0-0.7); Absolute Immature Granulocytes 0.4 10^3/uL (0-0.05); Absolute Lymphocytes 1.7 10^3/uL (1.2-3.4); Absolute Monocytes 1.1 10^3/uL (0.1-0.6); Absolute Neutrophils 11.1 10^3/uL (1.4-6.5); Hematocrit 32.5 % (39.0-52.0); Hemoglobin 11.2 g/dL (13.0-18.0); Mean Corp Hgb Conc. 34.5 g/dL (33.0-37.0); Mean Corpuscular Hgb 30.9 pg (27.0-31.0); Mean Corpuscular Volume 89.5 fL (80.0-94.0); Mean Platelet Volume 9.4 fL (7.4-10.4); Nucleated Red Blood Cells % 0 % (-); Platelet Count 543 10^3/uL (130-400); Red Blood Cell Count 3.63 10^6/uL (4.70-6.10); Red Cell Dist. Width 12.3 % (11.5-14.5); White Blood Cell Count 14.6 10^3/uL (4.8-10.8)
[2024-06-12 07:43] LABS: ALT (SGPT) 42 U/L (0-50); AST (SGOT) 34 U/L (17-59); Alkaline Phosphatase 178 U/L (38-126); Blood Urea Nitrogen 5 mg/dl (9-20); Calcium 9.1 mg/dl (8.4-10.2); Carbon Dioxide 27 mmol/L (22-30); Chloride 102 mmol/L (98-107); Estimated Creatinine Clearance 120 ml/min; Glucose 94 mg/dl (70-99); Potassium 4.6 mmol/L (3.5-5.1); Sodium 136 mmol/L (135-145); Total Bilirubin 0.4 mg/dl (0.2-1.3); eGFR > 60.00
[2024-06-12] MEDS: COLACE PO (08:02)
[2024-06-12] MEDS: MIRALAX PO (08:02)
[2024-06-12] MEDS: PROZAC 80 MG PO (08:04)
[2024-06-12] MEDS: LAMICTAL 50 MG PO (08:04)
[2024-06-12] MEDS: WELLBUTRIN SR (12 hour sustained release) 100 MG PO (08:04)
[2024-06-12] MEDS: NICODERM TRANSDERMAL 21 MG TRANSDERM (08:05)
[2024-06-12] MEDS: DILAUDID 0.5 MG IV (08:06)
--- NOTE | 2024-06-12 11:52 | W.PN.HOSP.TC ---
Addendum entered and electronically signed by Peter Westbrook MD 06/12/24 16:14:
Patient pain has improved after chest tube removal. Patient is currently on room air. Pulmonary is okay with patient being discharged today. Spoke with infectious disease and antibiotic changed to Augmentin for another 5 weeks per ID
recommendation. Patient for discharge today
Time of discharge 38 minutes
Original Note:
Today's Communication/Plan
-
Monitor vital signs and see plan
Continue antibiotics
Leukocytosis noted; no fever
Pulmonary to see today
nelson control
Assessment / Plan
Assessment / Plan
Gen-AAOx3, NAD
HEENT-NC, AT, anicteric, clear oral mm
Neck-supple
CV-reg, no M, +S1/S2
Lungs-clear B/L
Abd-soft, NT, ND
Ext-no edema
Musculoskeletal-no cyanosis, clubbing
Skin-warm and dry, erythematous left posterior back, no rashes elsewhere. Right lateral chest wall chest tube
Neuro-grossly non-focal
Psych-calm, cooperative
Sepsis due to right-sided cavitary pneumonia/empyema - CT chest reviewed. Discussed with pulmonary. IR placed chest tube on June 07, also getting thrombolysis through tube. Continue IV Unasyn. Infectious disease following. Fluid culture
positive for Streptococcus anginosus. Blood cultures negative so far. Daily chest x-rays per pulmonary. Overall films demonstrate improvement. Leukocytosis noted today.. Afebrile.
HIV negative.
Continue analgesics for right sided back pain related to pneumonia and chest tube.
CT chest 06/11 noted
Pulmonary following
Pain control
Hyponatremia -improved.
Constipation -improved.
Heat rash -left posterior back. Recommend offloading. Discussed with patient. No evidence of allergic reaction.
Elevated LFTs
Continue to monitor
Alcohol use disorder -abstinence strongly encouraged given presentation with pneumonia. No signs of alcohol withdrawal so far.
Tobacco dependence -cessation advised.
Depression/anxiety disorder -continue home meds.
DVT prophylaxis
Lovenox
Full code
Family updated at the bedside.
Anticipated Discharge: 24 - 48 hours
Subjective/Interval History
-
Date of Service: June 12, 2024
denies sob
Objective Data
-
Labs:
Laboratory Results
06/12/24
06:50
WBC 14.6 H
Hgb 11.2 L
Hct 32.5 L
Plt Count 543 H D
Sodium 136
Potassium 4.6
Chloride 102
Carbon Dioxide 27
BUN 5 L
Creatinine 0.9
Glucose 94
Calcium 9.1
Total Bilirubin 0.4
AST 34
ALT 42
Alkaline Phosphatase 178 H
Vital Signs:
Vital Signs
Temp Pulse Resp BP Pulse Ox
98.3 F 113 18 115/78 96
06/12/24 07:00 06/12/24 07:00 06/12/24 07:00 06/12/24 07:00 06/12/24 07:00
I&O
06/11/24 06/12/24 06/13/24
06:59 06:59 06:59
Intake Total 1200 / 1200 1920 / 1920
Output Total 610 / 610 600 / 600
Balance 590 / 590 1320 / 1320
--- NOTE | 2024-06-12 12:16 | W.PN.PUL3 ---
Today's Communication / Plan
-
Antibiotics per ID
Repeat chest x-ray with pulmonary visit in 3 to 4 weeks
Information left in chart
Reviewed importance of vaping cessation and moderation of alcohol use
Disposition efforts
Assessment
-
24-year-old male with daily alcohol use, ongoing cigarette/vape presents with acute onset right-sided chest discomfort 05/31. Symptoms persisted along with productive cough, fevers, sweats, started on ceftriaxone/doxycycline 06/05, prompted to the ED
per primary because of tachycardia and progressive symptoms. Chest x-ray shows right lower lobe cavitary pneumonia
Cavitary right lower lobe pneumonia
Patchy right middle lobe infiltrate
Right hilar and mediastinal adenopathy
Empyema, chest tube 06/07
s/p Intrapleural lytic therapy 06/07, 06/08
Chest tube removed 06/11
Acute right-sided chest discomfort, symptoms 05/31
Fevers/night sweats
Leukocytosis
Conditions present prior to admission
Daily alcohol use
[place] Lights/day
Ongoing tobacco/vaping
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
Plan/recommendations
At this time, the patient appears stable, nontoxic.
Significant improvement post chest tube placement
CT chest with minimal fluid. Per discussion with radiology, not enough fluid to warrant repeat lytic therapy
Chest tube removed 06/11
Chest exam improved significantly
Moving forward
Continue with broad-spectrum antibiotics. Unasyn continues, ID following
Pleural fluid positive for Streptococcus
Consider 6-week course, this will be deferred to infectious disease
Patient with daily alcohol use. Reviewed with patient that this may increase his risk for cavitary pneumonia
Discussed importance of discontinuing vaping
Repeat chest x-ray in 3 to 4 weeks with pulmonary follow-up
Discussed importance of tobacco and alcohol cessation
DVT prophylaxis: Lovenox therapy
GI prophylaxis: Not indicated
Reviewed with patient, mother at bedside, primary service
Disposition efforts
Subjective Data
-
Date of Service:
Date of Service: June 12, 2024
Subjective:
Patient is feeling well. Has some mild chest tube discomfort at site but otherwise ambulating without difficulty. Cough significant improved. Multiple family members at bedside
Objective Data
Data Reviewed
Vital Signs / I&O / Oxygen:
Vital Signs
Temp Pulse Resp BP Pulse Ox
98.3 F 113 18 115/78 96
06/12/24 07:00 06/12/24 07:00 06/12/24 07:00 06/12/24 07:00 06/12/24 07:00
Intake and Output
06/11/24 06/12/24 06/13/24
06:59 06:59 06:59
Intake Total 1200 / 1200 1920 / 1920
Output Total 610 / 610 600 / 600
Balance 590 / 590 1320 / 1320
SaO2 96
Physical Exam
General: Comfortable
HEENT: Normocephalic and Anicteric
Cardiovascular: S1-S2, Regular Rhythm (Tachycardic), Murmur (n), Peripheral Edema (n) and Calf Tenderness (n)
Respiratory: Wheeze (n), Crackles (Few right base, improved breath sounds), Rhonchi (Few right base) and Non-Labored Respirations
GI: Soft, Non Distended and Non Tender
Neurology: Awake, Alert and No Motor Deficits (Able to sit up without assistance)
Skin: Cyanosis (n), Jaundice (n) and Rash (improved erythema left back )
Labs/Micro/Reports
Lab Data
06/12/24 06:50
06/12/24 06:50
Microbiology
06/07/24 16:44 Pleural Fluid Fungal Smear - Final
No yeast or fungal elements seen.
06/07/24 16:44 Pleural Fluid Fungal Culture - Preliminary
Culture in progress.
Positive cultures are reported as soon as detected.
Final report to follow in four to five weeks.
06/06/24 13:31 Blood/Venous Blood Culture - Final
No Growth - Final Report
06/07/24 16:44 Pleural Fluid Body Fluid Culture - Final
Streptococcus anginosus
06/07/24 16:44 Pleural Fluid Gram Stain - Final
[2024-06-12 15:00] VITALS: BP 117/75
[2024-06-12] MEDS: ROXICODONE 5 MG PO (15:14)
--- NOTE | 2024-06-12 16:14 | W.DCSUMMARY ---
Discharge Summary
Discharge Data
Date of Admission: 06/06/24
Date of Discharge: 06/12/24
-
Pending Results: No
Hospital Course
24-year-old male with past medical history of alcohol use disorder, tobacco dependence, depression, anxiety came to the hospital with sepsis secondary to right-sided cavitary pneumonia/empyema with possible pulmonary abscess. Patient was seen by
pulmonary infectious disease throughout hospitalization. Patient underwent IR guided chest tube placement and received multiple times thrombolysis through the tube. He was also treated with IV antibiotics initially which was later transitioned to
oral antibiotics upon discharge. Fluid culture was consistent with Streptococcus anginosus. Once patient symptoms continue to improve then his chest tube was discontinued. Infectious disease recommended 5 more weeks of oral antibiotics upon
discharge. Pulmonary recommended patient to follow-up with them closely outpatient. Since patient symptoms continue to improve after chest tube removal, he was then discharged home with instructions to follow-up with all physicians outpatient.
Discharge Plan
-
Patient Disposition: Home (Routine Discharge)
Discharge Diagnosis/Procedures: Right lower lobe pneumonia with suspected pulmonic abscess
Empyema
Right hilar and mediastinal adenopathy
Diet: As tolerated
Activity: As tolerated
Driving Restrictions: As prior to admission
Bathing Restrictions: None
Blood Work: CBC next week with primary care provider
Activity Restrictions/Additional Instructions:
Continue with Augmentin for another 5 weeks
Repeat chest x-ray with pulmonary visit in 3 to 4 weeks
Referrals:
Taco Collins MD [Active] -
(CXR in 3-4 weeks with pulmonary f/u
[employer] visit in early jul with CXR.
[facility] in Aug with CT chest without IV contrast)
Nicola Wade CRNP [Family Provider] - in less than 1 week
Cara Gaitan MD [Active] - in one to two weeks
Prescriptions:
New
polyethylene glycol 3350 [HealthyLax] 17 gram Powder In Packet
17 g PO DAILY Qty: 0 0RF
nicotine 21 mg/24 hr Patch 24 Hour
21 mg transdermal DAILY Qty: 30 0RF
docusate sodium 100 mg Capsule
100 mg PO BID Qty: 0 0RF
oxycodone 5 mg Tablet
5 mg PO Q4HPRN PRN (Reason: severe pain) Qty: 10 0RF
amoxicillin-pot clavulanate 875-125 mg tablet
1 tab PO BID Qty: 70 0RF
Probiotic 15 billion cell capsule, sprinkle
1 cap PO DAILY Qty: 60 0RF
Continued
diclofenac sodium 75 mg tablet,delayed release (DR/EC)
75 mg PO BID Qty: 20 0RF
clonidine HCl 0.3 mg Tablet
0.3 mg PO HS
acetaminophen [Tylenol Extra Strength] 500 mg Tablet
1,000 mg PO Q6HPRN PRN (Reason: mild pain)
bupropion HCl 100 mg Tablet Sustained-Release 12 Hr
100 mg PO BID
lamotrigine 25 mg Tablet
50 mg PO BID
fluoxetine 20 mg Capsule
80 mg PO DAILY
diazepam 5 mg tablet
5 mg PO TIDPRN PRN (Reason: muscle spasm)
Discontinued
doxycycline hyclate 100 mg Capsule
100 mg PO BID
Discharge Orders:
Discharge Patient (As Directed); Ordered 06/12/24
Ordered By: Peter Westbrook
Discharge Date and Time
Discharge Date/Time: 06/12/24 17:24
Print Language: CROATIAN
--- NOTE | 2024-06-12 16:55 | W.PN.ID1 ---
Date of Service
Date of Service: June 12, 2024
Today's Communication
to complete 6 weeks total of augmentin - 5 more weeks
follow up with pulmonary
Assessment / Plan
Right lower lobe pneumonia with suspected pulmonic abscess
- possibly from aspiration event
Empyema -S/p chest tube placement 06/07
Leukocytosis - resolved
Fever - resolved
Alcohol use disorder
Recommendations:
minimal fluid on follow up ct chest
chest tube removed yesterdya
Pleural culture 06/07: Strep anginosus. Gram stain moderate GNR, many GPC chain
to complete 6 weeks total of augmentin - 5 more weeks
follow up with pulmonary
Chief Complaint
-: Other (lung abscess)
Subjective / Review of Systems
afebrile
called [facility] and updated indication to lung abscess which allowed the drug to be processed
Vital Signs / Physical Exam
Vital Signs
Vital Signs
Temp Pulse Resp BP Pulse Ox
98.5 F 83 18 117/75 97
06/12/24 15:00 06/12/24 15:00 06/12/24 15:00 06/12/24 15:00 06/12/24 15:00
Physical Exam
Constitutional: No Acute Distress
Cardiovascular: Regular Rate
Pulmonary: Symmetric and Non Labored
Gastrointestinal: Non Distended
Skin: Dry; Negative Rash or Jaundice
Neurological: Awake
Objective Data
Lab Data
Lab Results
06/12/24 06:50
06/12/24 06:50
Estimated Creat Clear 120 ml/min 06/12/24 06:50
Lactic Acid Cancelled 06/06/24 17:15
Total Bilirubin 0.4 mg/dl (0.2-1.3) 06/12/24 06:50
AST 34 U/L (17-59) 06/12/24 06:50
ALT 42 U/L (0-50) 06/12/24 06:50
Alkaline Phosphatase 178 U/L (38-126) H 06/12/24 06:50
Most recent labs reviewed.
Micro Results:
06/07/24 16:44 Fungal Smear - Final
Pleural Fluid No yeast or fungal elements seen.
Fungal Culture - Preliminary
Culture in progress.
Positive cultures are reported as soon as detected.
Final report to follow in four to five weeks.
06/06/24 13:31 Blood Culture - Final
Blood/Venous No Growth - Final Report
06/07/24 16:44 Body Fluid Culture - Final
Pleural Fluid Streptococcus anginosus
Gram Stain - Final
06/06/24 22:02 Respiratory Culture - Final
Sputum Usual Respiratory Jessica
Gram Stain - Final
06/06/24 16:36 Legionella Urinary Antigen - Final
Urine Negative for Legionella pneumophila Serogroup 1 antigen.
A negative result does not rule out the possiblity of
Legionella infection due to other serogroups or species of
Legionella. Clinical correlation is recommended.
Streptococcus pneumoniae Antigen (M - Final
Negative for Streptococcus pneumoniae antigen.
A negative result does not exclude infection with
Streptococcus pneumoniae. Clinical correlation is
recommended.
Imaging:
06/06/2024 CT chest with IV contrast: A large abnormal fluid collection with air bubbles and air-fluid level in the right lower hemithorax. Empyema with accompanying parenchymal abscess cannot be entirely excluded. There are small patchy opacities
in the right middle lobe at least in part representing subsegmental atelectasis, but cannot exclude pneumonitis. There is also suspected right hilar and mid mediastinal lymphadenopathy. Please see full dictation for additional detail. Film
personally viewed.
06/06/2024 CXR (2 view): Worsening airspace disease within the right lower lobe with new central lucency and possible air-fluid level suspicious for possible pulmonic abscess. Left lung is clear. Please see full dictation for additional detail.
Care Review
Plan reviewed with: Nurse (error message from [facility])
== END 2024-06-12 17:24 | disposition home or self-care (01) | DRG 871 ==
LOC: 3 WEST ACU 16:19
PROVIDERS: Radiology Diagnostic Radiology; ADMITTING PHYSICIAN Hospitalist; ATTENDING PHYSICIAN Internal Medicine; CONSULT PHYSICIAN Internal Medicine Critical Care Medicine; CONSULT PHYSICIAN Internal Medicine Infectious Disease; EMERGENCY PHYSICIAN Emergency Medicine; FAMILY PHYSICIAN Nurse Practitioner Family
PROC: 3E0L317 Introduction of Other Thrombolytic into Pleural Cavity, Percutaneous Approach (ICD-10-PCS; 2024-06-07)
PROC: 0W9930Z Drainage of Right Pleural Cavity with Drainage Device, Percutaneous Approach (ICD-10-PCS; 2024-06-07)
DX: A41.9 Sepsis, unspecified organism (principal); J85.1 Abscess of lung with pneumonia; E87.1 Hypo-osmolality and hyponatremia; T17.808A Unspecified foreign body in other parts of respiratory tract causing other injury, initial encounter; E86.1 Hypovolemia; F32.A Depression, unspecified; F41.9 Anxiety disorder, unspecified; F17.290 Nicotine dependence, other tobacco product, uncomplicated; F17.210 Nicotine dependence, cigarettes, uncomplicated; R59.0 Localized enlarged lymph nodes; F10.10 Alcohol abuse, uncomplicated; F12.90 Cannabis use, unspecified, uncomplicated; B95.4 Other streptococcus as the cause of diseases classified elsewhere; Z79.899 Other long term (current) drug therapy
CPT/HCPCS: 32557; 71045; 71046; 71250; 71260; 80053; 81003; 82248; 82550; 82945; 83605; 83615; 83986; 84157; 85025; 87015; 87040; 87070; 87077; 87102; 87186; 87205; 87206; 87389; 87449; 87899; 89051; 93005; 96361; 96374; 99152; 99153; 99285; 99406; J2997; Q9967

== ENCOUNTER → 2024-07-03 06:20 | Outpatient (REF) | payer OTHER, SELFPAY ==
[2024-07-03 09:42] LABS: % Basophils 0.8 % (0-2); % Eosinophils 3.5 % (0-6); % Immature Granulocytes 0.8 % (0-0.5); % Lymphocytes 31.2 % (20.5-51.1); % Monocytes 5.4 % (1.7-9.3); % Neutrophils 58.3 % (42.2-75.2); Absolute Basophils 0.1 10^3/uL (0-0.2); Absolute Eosinophils 0.3 10^3/uL (0-0.7); Absolute Immature Granulocytes 0.1 10^3/uL (0-0.05); Absolute Lymphocytes 2.4 10^3/uL (1.2-3.4); Absolute Monocytes 0.4 10^3/uL (0.1-0.6); Absolute Neutrophils 4.5 10^3/uL (1.4-6.5); Hematocrit 41.6 % (39.0-52.0); Hemoglobin 14.4 g/dL (13.0-18.0); Mean Corp Hgb Conc. 34.6 g/dL (33.0-37.0); Mean Corpuscular Volume 92.4 fL (80.0-94.0); Mean Platelet Volume 10.5 fL (7.4-10.4); Nucleated Red Blood Cells % 0 % (-); Platelet Count 214 10^3/uL (130-400); Red Cell Dist. Width 13.7 % (11.5-14.5); White Blood Cell Count 7.7 10^3/uL (4.8-10.8)
== END ==
LOC: HWLAB 06:20
PROVIDERS: ATTENDING PHYSICIAN Nurse Practitioner Family
DX: J18.9 Pneumonia, unspecified organism (principal); D72.829 Elevated white blood cell count, unspecified
CPT/HCPCS: 36415; 71046; 85025

== ENCOUNTER → 2024-09-17 12:55 | Outpatient (REF) | payer OTHER, SELFPAY | LOC: HWRAD 12:55 | PROVIDERS: ATTENDING PHYSICIAN Internal Medicine Critical Care Medicine; FAMILY PHYSICIAN Nurse Practitioner Family | DX: J85.1 Abscess of lung with pneumonia (principal); R59.9 Enlarged lymph nodes, unspecified; B95.4 Other streptococcus as the cause of diseases classified elsewhere | CPT/HCPCS: 71250 ==

== ENCOUNTER → 2025-03-06 06:51 | Outpatient (REF) | payer OTHER, SELFPAY | LOC: HWRAD 06:51 | PROVIDERS: ATTENDING PHYSICIAN Internal Medicine Critical Care Medicine; FAMILY PHYSICIAN Nurse Practitioner Family | DX: R91.1 Solitary pulmonary nodule (principal) | CPT/HCPCS: 71250 ==